=== PATIENT | male | born 1950 | race Caucasian/White ===

== ENCOUNTER 2016-05-10 23:31 | Inpatient (IN) ==
[2016-05-11] MEDS ORDERED: 0.9 % Sodium Chloride 1,000 ML IVC ONE ×2 (00:36→10:07)
--- NOTE | 2016-05-11 00:40 | Emergency Department Note ---
Disposition Clinical Impression: Altered mental status, Hypoxia, Acute renal failure, Weakness Disposition: Admitted As Inpatient Condition: Fair [facility] Care Provider[facility] - Forms: ED Satisfaction Letter Time of Disposition: 04:54 General Adult HPI - General Chief complaint: ED Weakness Stated complaint: weakness Time Seen by Provider: 05/11/16 00:36 Source: patient Mode of arrival: private vehicle Limitations: no limitations Nursing Notes Reviewed: Yes Vital Signs Reviewed: Yes - History of Present Illness HPI Narrative: 65-year-old male presents to the emergency department with complaint of generalized weakness, change in mental status and overall fatigue. Family at the bedside state that they have noticed a decrease in his mentation over the last 2 days. They deny any known head injury or trauma. Patient has not had any similar episodes in the past. Patient currently is being evaluated by the [facility] for possible cancer. Patient has a history of throat cancer and what she was diagnosed in 2007 and received radiation and chemotherapy treatment. He has since been in remission, however states that he has been told that he has multiple pulmonary nodules and they are currently evaluating him for possible lung cancer but with no official diagnosis. He denies any recent fever, chills, nausea or vomiting. He does state that he has had a mild intermittent cough for the last several weeks which is nonproductive. Patient denies any additional complaints or concerns. He has no known drug allergies. He has not recently started any new medications. He denies any chest pain or shortness of breath. He has not had any urinary symptoms. Onset (ago): day(s) Location: chest Radiation: non-radiation Pain Severity: moderate Pain Scale: 6 Consistency: intermittent Improves with: nothing Worsens with: nothing Associated symptoms: Reports: denies other symptoms Treatments Prior to Arrival: none - Related Data Home Medications Medication Instructions Recorded Confirmed Omeprazole [PriLOSEC] 20 mg PO DAILY 02/22/15 02/22/15 Albuterol Sulfate [Proventil Hfa] 2 puff IH Q4H PRN 05/11/16 05/11/16 Aspirin 81 mg PO DAILY 05/11/16 05/11/16 Atorvastatin Calcium [Lipitor] 80 mg PO DAILY 05/11/16 05/11/16 Cyclobenzaprine [Flexeril] 10 mg PO TID PRN 05/11/16 05/11/16 Diazepam [Valium] 10 mg PO DAILY PRN 05/11/16 05/11/16 Gabapentin [Neurontin] 300 mg PO TID 05/11/16 05/11/16 Guaifenesin [Siltussin SA] 100 mg PO BID 05/11/16 05/11/16 HYDROcodone/Acet 7.5/325 mg [[place] 1 tab PO 5XD PRN 05/11/16 05/11/16 7.5-325 mg] Moxifloxacin HCl [Avelox] 400 mg PO DAILY 05/11/16 05/11/16 Nabumetone [Relafen] 500 mg PO BID 05/11/16 05/11/16 Sennosides [Senna] 8.6 mg PO BID 05/11/16 05/11/16 Sertraline [Zoloft] 100 mg PO DAILY 05/11/16 05/11/16 Tamsulosin [Flomax] 0.4 mg PO DAILY 05/11/16 05/11/16 Tiotropium Br/Olodaterol HCl 2 puff IH DAILY 05/11/16 05/11/16 [Stiolto Respimat Inhal [place]] Tiotropium [place] [Spiriva 2 puff IH DAILY 05/11/16 05/11/16 Respimat] Tizanidine HCl 4 mg PO TID PRN 05/11/16 05/11/16 Allergies Allergy/AdvReac Type Severity Reaction Status Date / Time No Known Allergies Allergy Verified 05/10/16 23:36 All systems ED: reviewed and negative except as stated. Constitutional: Denies: fever, chills Cardiovascular: Denies: chest pain Respiratory: Reports: cough. Denies: dyspnea Gastrointestinal: Denies: abdominal pain, nausea, vomiting Musculoskeletal: Denies: back pain, neck pain Integumentary: Denies: rash, abrasion, lesions Neurological: Denies: headache Psychiatric: Denies: anxiety, depression, suicidal thoughts, homicidal thoughts Endocrine: Reports: fatigue Past Medical History - Past Medical History Attestation: Yes The following information was validated with the patient. Source: patient, nursing notes reviewed Medical history: Reports: COPD, GERD, other Surgical history: Reports: other (Back surgery, egd) Psychiatric history: Reports: no psych history - Social History Smoking Status: Former smoker Smokeless Tobacco Status: No Alcohol use: Reports: none Drug use: Reports: none Physical Exam - General Limitations: no limitations General appearance: alert, other (Alert and oriented 3, however slow to answer specific questions.) - Head Head exam: atraumatic, normocephalic, normal inspection - Eye Eye exam: Present: normal appearance, PERRL - Neck Neck exam: Present: normal inspection, full ROM, trachea midline - Chest Chest inspection: Present: normal inspection, symmetric chest wall rise - Respiratory Respiratory exam: Present: normal lung sounds bilaterally. Absent: respiratory distress - Cardiovascular Cardiovascular exam: Present: regular rate, normal rhythm, normal heart sounds - Abdominal Exam Abdominal exam: Present: soft, Non-Tender, normal bowel sounds - Extremities Exam Extremities exam: Present: normal inspection, full ROM. Absent: tenderness, pedal edema - Expanded Lower Extremity Exam Gait: observed and normal - Back Exam Back exam: Present: normal inspection, full ROM. Absent: tenderness - Neurological Exam Neurological exam: Present: alert, oriented X3 - Psychiatric Psychiatric exam: Present: normal affect, normal mood - Skin Skin exam: Present: warm, dry, intact, normal color Course Course Narrative: We would have liked to have done a CTA of the chest on this patient to further evaluate his hypoxia as well as get better imaging studies regarding his aforementioned pulmonary nodules and to rule out a pulmonary embolus, however we were unable to do this secondary to the patient's renal function. Patient will be admitted to the hospitalists for further evaluation of his acute renal failure, hypoxia, altered mental status and generalized weakness. I discussed this with both the patient and his family at the bedside and they verbalized understanding and agreement with plan of care. - Consultations Consultation #1: I discussed admission with the hospitalists, he accepts. Patient's family informed. Currently awaiting bed assignment. Time: 07:30 Vital Signs Temperature 97.4 F L 05/10/16 23:36 Pulse Rate 82 05/10/16 23:36 Respiratory Rate 19 05/10/16 23:36 Blood Pressure 117/69 05/10/16 23:36 O2 Sat by Pulse Oximetry 86 L 05/10/16 23:36 Temperature 97.4 F L 05/10/16 23:36 Pulse Rate 70 05/11/16 07:22 Respiratory Rate 18 05/11/16 07:22 Blood Pressure 103/87 05/11/16 07:22 O2 Sat by Pulse Oximetry 94 L 05/11/16 07:22 Oxygen Delivery Oxygen Delivery Nasal Cannula Medical Decision Making - Lab Data Lab results reviewed: Yes I reviewed the patient's lab results. Result diagrams: 05/11/16 00:55 05/11/16 00:55 Lab Results 05/11/16 05/11/16 05/11/16 Range/Units 00:55 00:55 00:55 WBC 8.5 (4.3-11.1) K/mcL RBC 4.92 (4.19-5.50) M/mcL Hgb 13.5 (12.9-16.9) g/dL Hct 41.0 (37.5-50.1) % MCV 83.3 (83.0-100.0) fL MCH 27.4 L (28.0-33.3) pg MCHC 32.9 (31.6-35.5) g/dL RDW 13.1 (11.5-14.5) % Plt Count 222 (140-400) K/mcL MPV 11.5 (9.4-12.4) fL Immature Gran % 1.5 (0-4) % Seg Neutrophils % 77.4 % Lymphocytes % 10.7 % Monocytes % 8.3 % Eosinophils % 1.4 % Basophils % 0.7 % Neutrophils # 6.6 (1.6-8.9) K/mcL Lymphocytes # 0.9 (0.6-4.6) K/mcL Monocytes # 0.7 (0.0-1.3) K/mcL Eosinophils # 0.1 (0.0-0.6) K/mcL Basophils # 0.1 (0.0-0.2) K/mcL PT 11.5 (9.4-12.1) Seconds INR 1.1 APTT (26.0-36.0) Seconds Sodium 139 (136-145) mEq/L Potassium 3.0 L (3.5-4.5) mEq/L Chloride 97 L (98-109) mEq/L Carbon Dioxide 28 (19-29) mEq/L BUN 39 H (8-26) mg/dL Creatinine 3.42 H (0.72-1.25) mg/dL Est GFR ( Amer) 22 L (> 60) Est GFR (Non-Af Amer) 18 L (> 60) BUN/Creatinine Ratio 11 (6-26) Glucose 176 H (70-99) mg/dL Calculated Osmolality 302 H (280-300) Calcium 17.5 H* (8.6-10.8) mg/dL Magnesium 2.3 (1.6-2.6) mg/dL Total Bilirubin 0.9 (0.2-1.2) mg/dL AST 100 H (5-34) Units/L ALT 70 H (0-55) Units/L Alkaline Phosphatase 362 H (38-126) Units/L Ammonia (18-72) mcmol/L Troponin I (0-0.03) ng/mL B-Natriuretic Peptide (0-100) pg/mL Serum Total Protein 7.8 (6.0-8.3) g/dL Albumin 3.5 (3.5-5.0) g/dL Globulin 4.3 H (2.4-3.5) g/dL Albumin/Globulin Ratio 0.8 L (1.1-2.2) TSH 0.918 (0.350-4.840) mcIU/mL Urine Color (Yellow) Urine Clarity (Clear) Urine pH (5.0-8.0) pH Units Ur Specific [place] (1.010-1.025) Urine Protein (Neg-Trace) mg/dL Urine Glucose (UA) (Normal) mg/dL Urine Ketones (Negative) mg/dL Urine Blood (Negative) Urine Nitrite (Negative) Urine Bilirubin (Negative) Urine Urobilinogen (Normal) mg/dL Ur Leukocyte Esterase (Negative) Ur Culture Indicated? (NO) 05/11/16 05/11/16 05/11/16 Range/Units 00:55 00:55 00:55 WBC (4.3-11.1) K/mcL RBC (4.19-5.50) M/mcL Hgb (12.9-16.9) g/dL Hct (37.5-50.1) % MCV (83.0-100.0) fL MCH (28.0-33.3) pg MCHC (31.6-35.5) g/dL RDW (11.5-14.5) % Plt Count (140-400) K/mcL MPV (9.4-12.4) fL Immature Gran % (0-4) % Seg Neutrophils % % Lymphocytes % % Monocytes % % Eosinophils % % Basophils % % Neutrophils # (1.6-8.9) K/mcL Lymphocytes # (0.6-4.6) K/mcL Monocytes # (0.0-1.3) K/mcL Eosinophils # (0.0-0.6) K/mcL Basophils # (0.0-0.2) K/mcL PT (9.4-12.1) Seconds INR APTT 22.4 L (26.0-36.0) Seconds Sodium (136-145) mEq/L Potassium (3.5-4.5) mEq/L Chloride (98-109) mEq/L Carbon Dioxide (19-29) mEq/L BUN (8-26) mg/dL Creatinine (0.72-1.25) mg/dL Est GFR ( Amer) (> 60) Est GFR (Non-Af Amer) (> 60) BUN/Creatinine Ratio (6-26) Glucose (70-99) mg/dL Calculated Osmolality (280-300) Calcium (8.6-10.8) mg/dL Magnesium (1.6-2.6) mg/dL Total Bilirubin (0.2-1.2) mg/dL AST (5-34) Units/L ALT (0-55) Units/L Alkaline Phosphatase (38-126) Units/L Ammonia (18-72) mcmol/L Troponin I 0.02 (0-0.03) ng/mL B-Natriuretic Peptide 21 (0-100) pg/mL Serum Total Protein (6.0-8.3) g/dL Albumin (3.5-5.0) g/dL Globulin (2.4-3.5) g/dL Albumin/Globulin Ratio (1.1-2.2) TSH (0.350-4.840) mcIU/mL Urine Color (Yellow) Urine Clarity (Clear) Urine pH (5.0-8.0) pH Units Ur Specific [place] (1.010-1.025) Urine Protein (Neg-Trace) mg/dL Urine Glucose (UA) (Normal) mg/dL Urine Ketones (Negative) mg/dL Urine Blood (Negative) Urine Nitrite (Negative) Urine Bilirubin (Negative) Urine Urobilinogen (Normal) mg/dL Ur Leukocyte Esterase (Negative) Ur Culture Indicated? (NO) 05/11/16 05/11/16 Range/Units 02:05 04:02 WBC (4.3-11.1) K/mcL RBC (4.19-5.50) M/mcL Hgb (12.9-16.9) g/dL Hct (37.5-50.1) % MCV (83.0-100.0) fL MCH (28.0-33.3) pg MCHC (31.6-35.5) g/dL RDW (11.5-14.5) % Plt Count (140-400) K/mcL MPV (9.4-12.4) fL Immature Gran % (0-4) % Seg Neutrophils % % Lymphocytes % % Monocytes % % Eosinophils % % Basophils % % Neutrophils # (1.6-8.9) K/mcL Lymphocytes # (0.6-4.6) K/mcL Monocytes # (0.0-1.3) K/mcL Eosinophils # (0.0-0.6) K/mcL Basophils # (0.0-0.2) K/mcL PT (9.4-12.1) Seconds INR APTT (26.0-36.0) Seconds Sodium (136-145) mEq/L Potassium (3.5-4.5) mEq/L Chloride (98-109) mEq/L Carbon Dioxide (19-29) mEq/L BUN (8-26) mg/dL Creatinine (0.72-1.25) mg/dL Est GFR ( Amer) (> 60) Est GFR (Non-Af Amer) (> 60) BUN/Creatinine Ratio (6-26) Glucose (70-99) mg/dL Calculated Osmolality (280-300) Calcium (8.6-10.8) mg/dL Magnesium (1.6-2.6) mg/dL Total Bilirubin (0.2-1.2) mg/dL AST (5-34) Units/L ALT (0-55) Units/L Alkaline Phosphatase (38-126) Units/L Ammonia 25 (18-72) mcmol/L Troponin I (0-0.03) ng/mL B-Natriuretic Peptide (0-100) pg/mL Serum Total Protein (6.0-8.3) g/dL Albumin (3.5-5.0) g/dL Globulin (2.4-3.5) g/dL Albumin/Globulin Ratio (1.1-2.2) TSH (0.350-4.840) mcIU/mL Urine Color Yellow (Yellow) Urine Clarity Clear (Clear) Urine pH 6.0 (5.0-8.0) pH Units Ur Specific [place] 1.012 (1.010-1.025) Urine Protein Negative (Neg-Trace) mg/dL Urine Glucose (UA) Normal (Normal) mg/dL Urine Ketones Negative (Negative) mg/dL Urine Blood Negative (Negative) Urine Nitrite Negative (Negative) Urine Bilirubin Negative (Negative) Urine Urobilinogen Normal (Normal) mg/dL Ur Leukocyte Esterase Negative (Negative) Ur Culture Indicated? NO (NO) - Radiology Data Radiology results reviewed: Yes I reviewed the patient's radiology results. - EKG Data EKG #1 EKG attestation: Yes I reviewed and interpreted this EKG. EKG shows normal: sinus rhythm Rate: normal Rhythm: NSR [place]/QRS: normal Interpretation: no acute changes
[2016-05-11 01:06] LABS: Basophils # 0.1 K/mcL (0.0-0.2); Basophils % 0.7 %; Eosinophils # 0.1 K/mcL (0.0-0.6); Eosinophils % 1.4 %; Hemoglobin 13.5 g/dL (12.9-16.9); Immature Granulocytes % 1.5 % (0-4); Lymphocytes # 0.9 K/mcL (0.6-4.6); Lymphocytes % 10.7 %; Mean Corpuscular HGB Conc 32.9 g/dL (31.6-35.5); Mean Corpuscular Hemoglobin 27.4 pg (28.0-33.3); Mean Corpuscular Volume 83.3 fL (83.0-100.0); Mean Platelet Volume 11.5 fL (9.4-12.4); Monocytes # 0.7 K/mcL (0.0-1.3); Monocytes % 8.3 %; Neutrophils # 6.6 K/mcL (1.6-8.9); Platelet Count 222 K/mcL (140-400); Red Blood Count 4.92 M/mcL (4.19-5.50); Red Cell Distribution Width 13.1 % (11.5-14.5); Segmented Neutrophils % 77.4 %
[2016-05-11 01:12] LABS: INR 1.1; Prothrombin Time 11.5 Seconds (9.4-12.1)
[2016-05-11 01:21] LABS: Albumin 3.5 g/dL (3.5-5.0); Albumin/Globulin Ratio 0.8 (1.1-2.2); Bilirubin,Total 0.9 mg/dL (0.2-1.2); Globulin 4.3 g/dL (2.4-3.5); Magnesium 2.3 mg/dL (1.6-2.6); Total Protein 7.8 g/dL (6.0-8.3)
[2016-05-11 01:23] LABS: Calcium 17.5 mg/dL (8.6-10.8)
[2016-05-11 01:43] LABS: Thyroid Stimulating Hormone 0.918 mcIU/mL (0.350-4.840)
[2016-05-11 02:25] LABS: Bilirubin,Urine Negative (Negative); Blood,Urine Negative (Negative); Clarity,Urine Clear (Clear); Color,Urine Yellow (Yellow); Glucose,Urine (UA) Normal (Normal); Ketones,Urine Negative (Negative); Leukocyte Esterase,Urine Negative (Negative); Nitrite,Urine Negative (Negative); Protein,Urine Negative (Neg-Trace); Specific Gravity,Urine 1.012 (1.010-1.025); Urobilinogen,Urine Normal (Normal)
[2016-05-11] MEDS ORDERED: *HR* HYDROmorphone (PF) 1 MG/ML SYRINGE IV ONE (04:49)
[2016-05-11] MEDS: 0.9 % Sodium Chloride 1,000 ML IVC SCH ×4 (04:57→21:18)
[2016-05-11] MEDS ORDERED: Naloxone 0.4 MG/ML INJ IVP PRN (09:49)
[2016-05-11] MEDS ORDERED: Acetaminophen 325 MG TABLET PO PRN (09:53)
[2016-05-11] MEDS ORDERED: Calcitonin-Salmon, Synthetic 400 UNIT/2 ML VIAL SQ SCH (10:30)
[2016-05-11] MEDS ORDERED: Albuterol 2.5 MG/3 ML NEBULIZER IH PRN (10:44)
--- NOTE | 2016-05-11 10:47 | Internal Med History&Physical ---
<Nati Mitchell - Last Filed: 05/11/16 21:10> Date of Encounter: 05/11/16 Time of Encounter: 08:30 Assessment and Plan (1) Hypercalcemia Current visit: Yes Status: Acute 1 patient presents with calcium level 17.5 he does have a history of malignancy and is presently being worked up for possible nodules in his lungs. He has had several family members with a history of lung cancer. We will continue with IV fluids and given a liter bolus. Then continue at 200 mL's an hour. 2 we will frequently check calcium 3 we will give calcitonin 4. Did consult oncology for concerns of malignancy (2) ANN-MARIE (acute kidney injury) Current visit: Yes Status: Acute 1 patient does have creatinine of 3.458. His baseline is around 1. Suspect this is related to his hypercalcemia. We will continue with IV fluids and monitor creatinine 2 we will avoid nephrotoxins 3 consult nephrology as needed (3) DVT prophylaxis Current visit: Yes Status: Acute 1 heparin subcutaneous (4) Hypoxia Current visit: Yes Status: Acute 1 patient presented with hypoxia, chest x-ray does not reveal any pneumonia some bright basilar atelectasis was notable mild pulmonary edema. We will continue with oxygen and titrate to maintain SPO2 greater than 92%. Some concern may be related to malignancy however he does have a history of tobacco abuse and COPD. 2 continue with bronchodilators 3 monitor for fluid overload (5) Weakness Current visit: Yes Status: Acute 1 she has been expressing weakness and fatigue which likely is related to his hypercalcemia will continue to monitor calcium levels 2 place patient on fall precautions Internal Medicine - H&P: HPI Chief complaint: Weakness Admitted From: Emergency Dept Plans for Post Hospital Care: Home History of present illness: Mr. Trevino is a 65 year old male past medical history of throat and prostate cancer presently 5 years ago COPD . Patient presented to the ER with complaints of generally weakness and change in mental status and fatigue over the past 2 days. Patient denies any recent history of head injury trauma or fall . [facility] did have some suspicious nodules on CAT scan dated 03/16/2015. He was seen by pulmonology at this facility which found these benign etiology. He does have a history of third cancer diagnosed in 2007 and received radiation and chemotherapy treatment. He has since been in remission he denies any recent chills fevers nausea vomiting or sick contacts. He does have intermittent mild cough which is nonproductive. He also has complaint of some anorexia states he just does not have an appetite to eat. Patient did present to the ER with above complaints. According to ER records patient's oxygen saturation was 86% he was placed on nasal cannula which did increase oxygen saturation 94% he is afebrile. Lab work did reveal no leukocytosis however he did have some hypokalemia as well as elevated creatinine and hypercalcemia calcium level 17.5. chest x-ray did reveal some bibasilar atelectasis and possible mild pulmonary edema. sinus rhythm no ST-T wave abnormalities. Patient was given IV fluid. He was admitted for further workup and evaluation. Presently patient appears fatigued. Denies any chest pain or shortness of breath. He does state he feels very weak lung sounds are clear bilaterally pounds S1 and S2 with no gallop murmur rub or click noted. SPO2 is 93% on 2 L nasal cannula. I reviewed his case with who agrees with plan Past Med Surg Social Fam HX - Past Medical History Medical history: COPD, GERD, other Psychiatric history: no psych history - Past Surgical History Surgical History: other (Back surgery, egd) - Social History Smoking Status: Former smoker Smokeless Tobacco Status: No Alcohol use: none Drug use: none - Family History Mother Age at : 73 Hx Family Neuromuscular Disorders: Yes Father Hx Family Cardiac Disorders: Yes Hx Family Respiratory Disorders: Yes Internal Medicine - H&P: Meds Omeprazole [PriLOSEC] 20 mg PO DAILY 02/22/15 [History] Albuterol Sulfate [Proventil Hfa] 2 puff IH Q4H PRN 05/11/16 [History] Aspirin 81 mg PO DAILY 05/11/16 [History] Atorvastatin Calcium [Lipitor] 80 mg PO DAILY 05/11/16 [History] Cyclobenzaprine [Flexeril] 10 mg PO TID PRN 05/11/16 [History] Diazepam [Valium] 10 mg PO DAILY PRN 05/11/16 [History] Gabapentin [Neurontin] 300 mg PO TID 05/11/16 [History] Guaifenesin [Siltussin SA] 100 mg PO BID 05/11/16 [History] HYDROcodone/Acet 7.5/325 mg [[place] 7.5-325 mg] 1 tab PO 5XD PRN 05/11/16 [ History] Moxifloxacin HCl [Avelox] 400 mg PO DAILY 05/11/16 [History] Nabumetone [Relafen] 500 mg PO BID 05/11/16 [History] Sennosides [Senna] 8.6 mg PO BID 05/11/16 [History] Sertraline [Zoloft] 100 mg PO DAILY 05/11/16 [History] Tamsulosin [Flomax] 0.4 mg PO DAILY 05/11/16 [History] Tiotropium Br/Olodaterol HCl [Stiolto Respimat Inhal [place]] 2 puff IH DAILY [History] Tiotropium [place] [Spiriva Respimat] 2 puff IH DAILY 05/11/16 [History] Tizanidine HCl 4 mg PO TID PRN 05/11/16 [History] Allergies No Known Allergies Allergy (Verified 05/10/16 23:36) All Systems PM: A 10-system review of systems was performed and is negative for pertinent findings except as documented above in the HPI. - Constitutional Constitutional: anorexia, fatigue, fever(s), weakness - Cardiovascular Cardiovascular ROS IM: no chest pain, no diaphoresis, no dyspnea, no lightheadedness, no palpitations, no syncope - Respiratory Respiratory: cough, no dyspnea, no wheezing, no excessive phlegm production - Gastrointestinal Gastrointestinal: no abdominal pain, no diarrhea, no hematemesis, no hematochezia, no melena, no nausea, no vomiting - Musculoskeletal Musculoskeletal ROS IM: no numbness, no tingling - Integumentary Integumentary IM: no rash, no unusual bruising - Neurological Neurological ROS: no confusion, no convulsions, no focal weakness, no numbness, no tingling, no tremor(s) - Constitutional Vitals: Temp Pulse Resp BP Pulse Ox 97.3 F L 98 15 119/76 95 05/11/16 10:07 05/11/16 10:07 05/11/16 10:07 05/11/16 10:07 05/11/16 10:07 General appearance: Present: A&O X 3 - Head Head exam: Present: atraumatic, normocephalic - Eye Eye exam: Present: PERRL, conjuntiva pink, sclera anicteric Pupils: Present: PERRL - Neck Neck exam general surgery: Present: supple, trachea midline. Absent: lymphadenopathy - Respiratory Respiratory exam: Present: CTAB. Absent: accessory muscle use, rales, rhonchi, wheezes - Cardiovascular Cardiovascular exam: Present: RRR, +S1, +S2. Absent: diastolic murmur, gallop, rubs, systolic murmur - GI/Abdominal GI/Abdominal exam: Present: normal bowel sounds, soft, no peritoneal signs. Absent: distended, tenderness - Extremities Exam Extremities exam: Present: warm, radial pulses palpable and symetrical. Absent : calf tenderness, cyanotic, pedal edema - Neurological Exam Neurological exam: Present: CN II-XII intact, oriented X3, no focal deficits. Absent: pronater drift, facial droop, speech deficit - Skin Skin exam: Present: dry, intact Internal Med - H&P Results - Labs CBC & Chem 7: 05/11/16 00:55 05/11/16 17:30 - EKG Data EKG shows normal: sinus rhythm - Diagnostic Studies Other Images Additional comments: Chest X-Ray 05/11/16 00:36 IMPRESSION: 1. Bibasilar atelectasis or, less likely, pneumonia. 2. Mild pulmonary edema versus artifact. D/ / Omari Baca MD / Omari Baca MD Interpreting Provider: Omari Baca MD Head CT 05/11/16 00:39 IMPRESSION: No acute intracranial abnormality. D/ / Omari Baca MD / Omari Baca MD Interpreting Provider: Omari Baca MD <Lc Shah - Last Filed: 05/13/16 08:00> Assessment and Plan (1) Hypercalcemia of malignancy Current visit: Yes Status: Acute (2) Altered mental status Current visit: Yes Status: Acute Qualifiers: Altered mental status type: delirium Qualified Code(s): R41.0 - Disorientation, unspecified (3) ANN-MARIE (acute kidney injury) Current visit: Yes Status: Acute (4) DVT prophylaxis Current visit: Yes Status: Acute Internal Medicine - H&P: HPI History of present illness: Mr. Trevino is a 65 year old male All Systems PM: A 10-system review of systems was performed and is negative for pertinent findings except as documented above in the HPI. - Constitutional Vitals: Temp Pulse Resp BP Pulse Ox 98.0 F 99 16 128/75 88 L 05/13/16 06:23 05/13/16 06:23 05/13/16 06:23 05/13/16 06:23 05/13/16 06:23 Internal Med - H&P Results - Labs CBC & Chem 7: 05/12/16 06:17 05/12/16 06:17 - Impressions ITS Impressions Chest CT 05/12/16 09:52 IMPRESSION: 1. New since the prior examination is extensive subcentimeter lytic lesions throughout the thoracic axial and appendicular skeleton consistent with multiple myeloma. There is no pathologic fracture. 2. Motion artifact limits evaluation of the lungs with no acute pneumonia or effusion. 3. Progressive linear orientation of numerous nodules in the right upper lobe with an individual component measuring 9 mm compared to 6 mm on the prior exam. There are stable numerous bilateral solid pulmonary nodules. D/ / 05/12/2016 13:51:06 Petr Mcclelland MD / tabitha Interpreting Provider: Petr Mcclelland MD Hip/Pelvis X-Ray 05/12/16 10:10 IMPRESSION: No acute or suspicious abnormalities. Mild degenerative changes to both hips and both SI joints and to the visualized lower lumbar spine. D/ / 05/12/2016 14:02:08 Quinn Ramachandran MD / kiersten Interpreting Provider: Quinn Ramachandran MD - Attending Attestation I examined this patient and my medical decision-making was reviewed with the CATERPILLAR MECHANIC/PA/Advanced Practice Nurse/Resident Physician. I agree with the documented findings, disposition and treatment plan as described except to the extent set forth below. Patient presented with altered mental status. Was found to have hypercalcemia, likely secondary to malignancy. On exam he is confused but in no distress. Heart is regular rate and rhythm S1-S2. Plan: IV fluids, calcitonin, oncology consult, follow up labs closely. Avoid nephrotoxins due to acute kidney injury. Workup for malignancy in progress.
[2016-05-11] MEDS: Ipratropium/Albuterol Neb 3 ML IH SCH ×3 (11:41→22:19)
[2016-05-11] MEDS: *HR* HYDROcodone/Acet 5/325 mg TABLET PO PRN (13:38)
[2016-05-11] MEDS: Gabapentin 100 MG CAPSULE PO SCH (21:07)
[2016-05-11] MEDS: Sennosides 8.6 MG TABLET PO SCH (21:07)
[2016-05-11] MEDS: *HR* Heparin 5,000 UNIT/ML VIAL SQ SCH (21:17)
[2016-05-11 21:39] LABS: Potassium 3.4 mEq/L (3.5-4.5)
[2016-05-11 21:44] LABS: Calcium 14.1 mg/dL (8.6-10.8)
[2016-05-12] MEDS: 0.9 % Sodium Chloride 1,000 ML IVC SCH ×3 (04:48→19:29)
[2016-05-12] MEDS: *HR* Heparin 5,000 UNIT/ML VIAL SQ SCH ×2 (04:53→17:33)
[2016-05-12] MEDS: Calcitonin-Salmon, Synthetic 400 UNIT/2 ML VIAL SQ SCH ×2 (05:02→17:35)
[2016-05-12] MEDS: Ipratropium/Albuterol Neb 3 ML IH SCH ×4 (05:23→22:02)
[2016-05-12 06:29] LABS: Basophils # 0.1 K/mcL (0.0-0.2); Basophils % 0.8 %; Eosinophils # 0.1 K/mcL (0.0-0.6); Eosinophils % 1.2 %; Hematocrit 36.3 % (37.5-50.1); Immature Granulocytes % 4.7 % (0-4); Lymphocytes # 0.9 K/mcL (0.6-4.6); Lymphocytes % 11.6 %; Mean Corpuscular HGB Conc 33.1 g/dL (31.6-35.5); Mean Corpuscular Hemoglobin 27.6 pg (28.0-33.3); Mean Corpuscular Volume 83.6 fL (83.0-100.0); Mean Platelet Volume 11.2 fL (9.4-12.4); Monocytes # 0.8 K/mcL (0.0-1.3); Monocytes % 10.5 %; Neutrophils # 5.4 K/mcL (1.6-8.9); Platelet Count 209 K/mcL (140-400); Red Blood Count 4.34 M/mcL (4.19-5.50); Red Cell Distribution Width 13.2 % (11.5-14.5); Segmented Neutrophils % 71.2 %
[2016-05-12 06:40] LABS: Potassium 3.5 mEq/L (3.5-4.5)
[2016-05-12 06:46] LABS: Calcium 13.8 mg/dL (8.6-10.8)
[2016-05-12] MEDS: Aspirin 81 MG TAB.CHEW PO SCH (08:05)
[2016-05-12] MEDS: Sennosides 8.6 MG TABLET PO SCH ×2 (08:05→20:33)
[2016-05-12] MEDS ORDERED: Tiotropium 18 MCG inhalation IH SCH (09:00)
--- NOTE | 2016-05-12 09:56 | Oncology Inp Consult Note ---
Date of Encounter: 05/12/16 Time of Encounter: 12:00 Assessment and Plan (1) Hypercalcemia Status: Acute Assessment and plan: -Patient with severe hypercalcemia and AMS-hx of head and neck cancer, s/p radiation and prostate ca s/p RT (PSA nl), with hx lung nodules was [facility] of [facility]? hypercalcemia secondary to malignancy-?new primary vs metastatic malignancy. PTH level not available. He will need bone scan. Ct chest wo contrast ordered due to renal insufficiency. -Joint pains recently worsened ?metastatic malignancy-needs work up. Obtain reports from outside hospitals[facility] -On norco. Antiemetics and stool softners. Not received bisphosphonates per pharmacy. Serum Cr improving. Pamidronate written with steroids. On calcitonin BID dosing. Plan of care discussed with patient and family in detail - Data of Consult Requesting Physician: Lc Shah MD Primary Care Provider: PCP [place] - Consult Narrative Reason for consult: hypercalcemia History of present illness: Mr. Trevino is a 65 year old male with medical history significant for head and neck cancer status posttreatment with radiation 5 years or so ago at [facility] , history of prostate cancer treated 2 years ago status post external beam radiation therapy the PSA under control the patient's family report, COPD, gastroesophageal reflux disease, history of lung nodules since January 2015 hospitalized with hypercalcemia, altered mental status. Admission calcium was at 17 which improved to around 14-13 today. Patient is awake and oriented 2 to communicate well. The patient has had hip and joint discomfort for the last month or so. He has a cough with expectoration without any hemoptysis. He has COPD denies any worsening of shortness of breath. He had some difficulty swallowing had undergone ENT exam and dilatation, he is also status [facility] He had an episode of nausea and vomiting this a.m. He denies any lower extremity pain he denies neuropathy symptoms. He is able to walk to the bathroom without difficulty and had participated in physical therapy yesterday per family. A 14 point review of systems is otherwise negative. Past Med Surg Social Fam HX - Past Medical History Medical history: COPD, GERD, other Psychiatric history: no psych history - Past Surgical History Surgical History: other (Back surgery, egd) - Social History Smoking Status: Former smoker Smokeless Tobacco Status: No Alcohol use: none Drug use: none - Family History Mother Age at : 73 Hx Family Neuromuscular Disorders: Yes Father Hx Family Cardiac Disorders: Yes Hx Family Respiratory Disorders: Yes Medications and Allergies Omeprazole [PriLOSEC] 20 mg PO DAILY 02/22/15 [History] Albuterol Sulfate [Proventil Hfa] 2 puff IH Q4H PRN 05/11/16 [History] Aspirin 81 mg PO DAILY 05/11/16 [History] Atorvastatin Calcium [Lipitor] 80 mg PO DAILY 05/11/16 [History] Cyclobenzaprine [Flexeril] 10 mg PO TID PRN 05/11/16 [History] Diazepam [Valium] 10 mg PO DAILY PRN 05/11/16 [History] Gabapentin [Neurontin] 300 mg PO TID 05/11/16 [History] Guaifenesin [Siltussin SA] 100 mg PO BID 05/11/16 [History] HYDROcodone/Acet 7.5/325 mg [[place] 7.5-325 mg] 1 tab PO 5XD PRN 05/11/16 [ History] Moxifloxacin HCl [Avelox] 400 mg PO DAILY 05/11/16 [History] Nabumetone [Relafen] 500 mg PO BID 05/11/16 [History] Sennosides [Senna] 8.6 mg PO BID 05/11/16 [History] Sertraline [Zoloft] 100 mg PO DAILY 05/11/16 [History] Tamsulosin [Flomax] 0.4 mg PO DAILY 05/11/16 [History] Tiotropium Br/Olodaterol HCl [Stiolto Respimat Inhal [place]] 2 puff IH DAILY [History] Tiotropium [place] [Spiriva Respimat] 2 puff IH DAILY 05/11/16 [History] Tizanidine HCl 4 mg PO TID PRN 05/11/16 [History] Allergies No Known Allergies Allergy (Verified 05/10/16 23:36) Review of systems: as in HPI Oncology - Exam - Constitutional Vitals: Temp Pulse Resp BP Pulse Ox 98.4 F 93 16 132/85 92 L 05/12/16 07:16 05/12/16 07:16 05/12/16 07:16 05/12/16 07:16 05/12/16 07:16 Exam: T well-built and acute HEENT atraumatic normocephalic anicteric sclera. Neck no palpable lymphadenopathy. Chest bilateral air entry. Cardiovascular S1-S2 present Abdomen is soft nontender no hepatosplenomegaly no masses palpable Muscskeletal no bony tenderness in the back or deformities Extremities no lower extremity edema Neurologic alert awake oriented no sensory/motor deficits, Walks with help Oncology - Results - Labs Labs: Short CBC 05/12/16 Range/Units 06:17 WBC 7.6 (4.3-11.1) K/mcL Hgb 12.0 L D (12.9-16.9) g/dL Hct 36.3 L (37.5-50.1) % Plt Count 209 (140-400) K/mcL Neutrophils # 5.4 (1.6-8.9) K/mcL BMP 05/11/16 05/11/16 05/11/16 11:50 17:30 17:30 Sodium Potassium 3.1 L Chloride Carbon Dioxide BUN Creatinine Glucose Calcium 14.7 H* D 14.6 H* 05/11/16 05/12/16 21:21 06:17 Sodium 146 H D 146 H Potassium 3.4 L 3.5 Chloride 111 H 113 H Carbon Dioxide 27 25 BUN 28 H D 25 Creatinine 3.01 H 2.80 H Glucose 118 H 108 H Calcium 14.1 H* 13.8 H* Consult Discharge Plan - Plan [facility]errals: [facility] [Primary Care Provider] -
[2016-05-12] MEDS ORDERED: Dexamethasone 4 MG/ML VIAL IVP ONE (10:09)
[2016-05-12] MEDS ORDERED: Pamidronate 30 MG in 0.9 % Sodium Chloride 500 ML IVPB ONE (10:09)
--- NOTE | 2016-05-12 14:09 | Internal Med Progress Note ---
Date of Encounter: 05/12/16 Time of Encounter: 14:09 - Assessment and plan (1) Hypercalcemia of malignancy Current Visit: Yes Status: Acute Assessment and plan: IV fluids and Lasix. Patient was given calcitonin. We will give pamidronate. I discussed the case with oncology. Appreciate their input. CT of the chest shows multiple lytic lesions concerning for multiple myeloma. We will follow up with oncology. (2) Altered mental status Current Visit: Yes Status: Acute Assessment and plan: Likely secondary to hypercalcemia, now improving with decreasing calcium level. We will monitor mental status closely. Qualifiers: Altered mental status type: delirium Qualified Code(s): R41.0 - Disorientation, unspecified (3) ANN-MARIE (acute kidney injury) Current Visit: Yes Status: Acute Assessment and plan: Secondary to hypercalcemia, dehydration, nephrocalcinosis or possibly related to multiple myeloma. We will continue with IV fluid hydration. Avoid nephrotoxins. Monitor BUN and creatinine. (4) DVT prophylaxis Current Visit: Yes Status: Acute Assessment and plan: Subcutaneous heparin. - Subjective Interval history: SOB improving from yesterday , mental status improved, no associated cough. No nausea vomiting diarrhea. She presented yesterday was altered mental status and elevated calcium level. - Constitutional Vitals: Temp Pulse Resp BP Pulse Ox 98.2 F 91 15 110/66 94 L 05/12/16 11:39 05/12/16 11:39 05/12/16 11:39 05/12/16 11:39 05/12/16 11:39 General appearance: Present: A&O X 3 - Eye Eye exam: Present: PERRL, conjuntiva pink, sclera anicteric Pupils: Present: PERRL - Respiratory Respiratory exam: Present: CTAB. Absent: accessory muscle use, rales, rhonchi, wheezes - Cardiovascular Cardiovascular exam: Present: RRR, +S1, +S2. Absent: diastolic murmur, gallop, rubs, systolic murmur - GI/Abdominal GI/Abdominal exam: Present: normal bowel sounds, soft, no peritoneal signs. Absent: distended, tenderness - Extremities Exam Extremities exam: Present: warm, radial pulses palpable and symetrical. Absent : calf tenderness, cyanotic, pedal edema - Neurological Exam Neurological exam: Present: CN II-XII intact, oriented X3, no focal deficits. Absent: pronater drift, facial droop, speech deficit Internal Medicine: Result - Labs CBC & Chem 7: 05/12/16 06:17 05/12/16 06:17 Labs: Short CBC 05/12/16 Range/Units 06:17 WBC 7.6 (4.3-11.1) K/mcL Hgb 12.0 L D (12.9-16.9) g/dL Hct 36.3 L (37.5-50.1) % Plt Count 209 (140-400) K/mcL Neutrophils # 5.4 (1.6-8.9) K/mcL BMP 05/11/16 05/11/16 05/11/16 17:30 17:30 21:21 Sodium 146 H D Potassium 3.1 L 3.4 L Chloride 111 H Carbon Dioxide 27 BUN 28 H D Creatinine 3.01 H Glucose 118 H Calcium 14.6 H* 14.1 H* 05/12/16 06:17 Sodium 146 H Potassium 3.5 Chloride 113 H Carbon Dioxide 25 BUN 25 Creatinine 2.80 H Glucose 108 H Calcium 13.8 H* - ABG Interpretation ABG results: PT/INR, D-dimer PT 11.5 Seconds (9.4-12.1) 05/11/16 00:55 - Impressions Impressions Chest CT 05/12/16 09:52 IMPRESSION: 1. New since the prior examination is extensive subcentimeter lytic lesions throughout the thoracic axial and appendicular skeleton consistent with multiple myeloma. There is no pathologic fracture. 2. Motion artifact limits evaluation of the lungs with no acute pneumonia or effusion. 3. Progressive linear orientation of numerous nodules in the right upper lobe with an individual component measuring 9 mm compared to 6 mm on the prior exam. There are stable numerous bilateral solid pulmonary nodules. D/ / 05/12/2016 13:51:06 Petr Mcclelland MD / tabith[facility] Interpreting Provider: Petr Mcclelland MD Hip/Pelvis X-Ray 05/12/16 10:10 IMPRESSION: No acute or suspicious abnormalities. Mild degenerative changes to both hips and both SI joints and to the visualized lower lumbar spine. D/ / 05/12/2016 14:02:08 Quinn Ramachandran MD / kiersten Interpreting Provider: Quinn Ramachandran MD Consult Discharge Plan - Plan [facility]errals: [facility] [Primary Care Provider] -
[2016-05-12] MEDS: *HR* HYDROcodone/Acet 5/325 mg TABLET PO PRN (20:32)
[2016-05-12] MEDS: Gabapentin 100 MG CAPSULE PO SCH (20:33)
[2016-05-12] MEDS: Ondansetron 4 MG/2 ML VIAL IVP PRN (20:33)
[2016-05-13] MEDS: Ipratropium/Albuterol Neb 3 ML IH SCH ×4 (04:11→22:47)
[2016-05-13] MEDS: *HR* Heparin 5,000 UNIT/ML VIAL SQ SCH ×2 (05:24→16:54)
[2016-05-13] MEDS: Calcitonin-Salmon, Synthetic 400 UNIT/2 ML VIAL SQ SCH ×2 (05:24→14:00)
--- NOTE | 2016-05-13 07:34 | Electrocardiograph Report ---
[place] [id number] Test Date: 2016-05-10 Pat Name: David Trevino Department: 104 Room: 2NE19 Gender: M X Ray Inspector: : 1950 Requested By: Rajendra Sims Order Number: [id number] Reading MD: Bill Christianson MD Measurements Intervals [place] Rate: 90 P: 37 ID: [id number] QRS: 2 QRSD: 98 T: -15 QT: 252 QTc: 300 Interpretive Statements SINUS RHYTHM WITH OCCASIONAL VENTRICULAR PREMATURE COMPLEXES Electronically Signed On 05-13-2016 7:33:36 EDT by Bill Christianson MD
[2016-05-13] MEDS: Aspirin 81 MG TAB.CHEW PO SCH (08:05)
[2016-05-13] MEDS: Sennosides 8.6 MG TABLET PO SCH ×2 (08:06→20:17)
--- NOTE | 2016-05-13 09:21 | Oncology Inp Progress Note ---
Date of Encounter: 05/13/16 Time of Encounter: 07:00 (1) Hypercalcemia Current Visit: Yes Status: Acute Assessment and plan: -Patient with severe hypercalcemia and AMS-hx of head and neck cancer, s/p radiation and prostate ca s/p RT (PSA nl), with hx lung nodules CT chest wo contrast and hip imaging findings reviewed d/w patient and family. PSA was nl. Lytic lesions in Ct chest, renal insufficiency -new onset ?sec hypercalcemia or primary process such as plasma cell dyscrasia. SPEP, light chanis pending. Obtain details of head and neck cancer stage/treatment from [place]. Will plan to obtain bone bx for diagnosis by IR> s/p pamidronate/dexamethasone yesterday for hypercalcemia. Pain under control Plan d/w family in detail Oncology: Subj Interval history: Patient is awake, bedside. Communicating better, no further nausea - Constitutional Vitals: Vital Signs Temp Pulse Resp BP Pulse Ox 05/13/16 06:23 98.0 F 99 16 128/75 88 L 05/13/16 04:12 16 92 L 05/13/16 03:45 98.1 F 101 16 135/71 92 L 05/13/16 00:11 97.9 F 94 16 117/74 91 L 05/12/16 22:03 16 91 L 05/12/16 20:00 95 05/12/16 19:46 98.3 F 106 16 134/74 95 05/12/16 16:00 98.0 F 102 15 125/82 98 05/12/16 15:35 18 98 05/12/16 11:39 98.2 F 91 15 110/66 94 L 05/12/16 10:27 18 95 Intake and Output 05/12/16 05/13/16 05/13/16 23:59 07:59 15:59 Intake Total 1250 / 1250 750 / 750 120 / 120 Output Total 225 / 225 Balance 1250 / 1250 525 / 525 120 / 120 Intake: IV Fluids 1000 / 1000 0.9 % Sodium Chloride 1, 1000 / 1000 000 ML @ 200 mls/hr IVC . Q5H LISA Rx#:[id number] Oral 250 / 250 750 / 750 120 / 120 Output: Urine 225 / 225 Other: Meal Dinner Breakfast Percent of Meal Consumed 50% 60% # Voids 1 Weight 89 kg 89 kg Blood Glucose* 188 Patient Weight 05/13/16 23:59 Weight 89 kg General appearance: no acute distress - Head Head exam: Present: atraumatic, normal inspection - Eye Eye exam: Present: sclera anicteric - Neck Neck exam: Present: full ROM Additional comments: no adenoapthy - Respiratory Respiratory exam: Present: CTAB - Cardiovascular Cardiovascular exam: Present: +S1, +S2 - Extremities Exam Extremities exam: Present: pedal edema Oncology: Obj Data - Labs CBC & Chem 7: 05/12/16 06:17 05/12/16 06:17 Labs: Laboratory Results - last 24 hr 05/12/16 17:03 POC Glucose 188 H - Impressions Impressions Chest CT 05/12/16 09:52 IMPRESSION: 1. New since the prior examination is extensive subcentimeter lytic lesions throughout the thoracic axial and appendicular skeleton consistent with multiple myeloma. There is no pathologic fracture. 2. Motion artifact limits evaluation of the lungs with no acute pneumonia or effusion. 3. Progressive linear orientation of numerous nodules in the right upper lobe with an individual component measuring 9 mm compared to 6 mm on the prior exam. There are stable numerous bilateral solid pulmonary nodules. D/ / 05/12/2016 13:51:06 Petr Mcclelland MD / [facility] [place] Interpreting Provider: Petr Mcclelland MD Hip/Pelvis X-Ray 05/12/16 10:10 IMPRESSION: No acute or suspicious abnormalities. Mild degenerative changes to both hips and both SI joints and to the visualized lower lumbar spine. D/ / 05/12/2016 14:02:08 Quinn Ramachandran MD / kiersten Interpreting Provider: Quinn Ramachandran MD - ABG Interpretation ABG results: PT/INR, D-dimer PT 11.5 Seconds (9.4-12.1) 05/11/16 00:55 Consult Discharge Plan - Plan [facility]errals: [facility] [Primary Care Provider] -
[2016-05-13 15:25] LABS: Basophils % 0.2 %; Hematocrit 41.3 % (37.5-50.1); Hemoglobin 13.2 g/dL (12.9-16.9); Immature Granulocytes % 1.6 % (0-4); Lymphocytes # 0.7 K/mcL (0.6-4.6); Lymphocytes % 4.3 %; Mean Corpuscular Hemoglobin 27.3 pg (28.0-33.3); Mean Corpuscular Volume 85.3 fL (83.0-100.0); Mean Platelet Volume 11.1 fL (9.4-12.4); Neutrophils # 14.2 K/mcL (1.6-8.9); Platelet Count 246 K/mcL (140-400); Red Blood Count 4.84 M/mcL (4.19-5.50); Red Cell Distribution Width 13.5 % (11.5-14.5); Segmented Neutrophils % 87.9 %
[2016-05-13 15:40] LABS: Albumin 3.4 g/dL (3.5-5.0); Albumin/Globulin Ratio 0.8 (1.1-2.2); Bilirubin,Total 0.8 mg/dL (0.2-1.2); Globulin 4.1 g/dL (2.4-3.5); Potassium 3.7 mEq/L (3.5-4.5); Total Protein 7.5 g/dL (6.0-8.3)
[2016-05-13 15:42] LABS: Calcium 13.9 mg/dL (8.6-10.8)
[2016-05-13] MEDS: 0.9 % Sodium Chloride 1,000 ML IVC SCH (16:54)
[2016-05-13] MEDS ORDERED: Levofloxacin 500 MG/100 ML 500 MG/100 ML BAG IVPB ONE (17:00)
[2016-05-13 17:53] LABS: ABG Base Excess 3.2 mEq/L (-2.0 to 3.0); ABG HCO3 27.9 mEQ/L (21-27); ABG Oxygen Saturation 95 % (95-98); ABG PCO2 42 mmHg (35-45); ABG PH 7.43 pH Units (7.32-7.45); ABG PO2 72 mmHg (85-104); ABG TCO2 29.2 mEq/L (20-26); Blood Gas FiO2 32 %; Blood Gas Liter Flow 3 L/MIN
--- NOTE | 2016-05-13 20:12 | Internal Med Progress Note ---
Date of Encounter: 05/13/16 Time of Encounter: 15:00 - Assessment and plan (1) Hypercalcemia of malignancy Current Visit: Yes Status: Acute Assessment and plan: IV fluids and Lasix. Patient was given calcitonin. We will give pamidronate. I discussed the case with oncology. Appreciate their input. CT of the chest shows multiple lytic lesions concerning for multiple myeloma. We will follow up with oncology. (2) Altered mental status Current Visit: Yes Status: Acute Assessment and plan: Likely secondary to hypercalcemia, possibly compounded by pre-existing dementia and delirium secondary to medical disease, possible infection. We will monitor mental status closely. We will treat his hypercalcemia. Check ABG to rule out hypercapnia as a possible cause for his altered mental status. Qualifiers: Altered mental status type: delirium Qualified Code(s): R41.0 - Disorientation, unspecified (3) ANN-MARIE (acute kidney injury) Current Visit: Yes Status: Acute Assessment and plan: Secondary to hypercalcemia, dehydration, nephrocalcinosis or possibly related to multiple myeloma. We will continue with IV fluid hydration. Avoid nephrotoxins. Monitor BUN and creatinine. (4) DVT prophylaxis Current Visit: Yes Status: Acute Assessment and plan: Subcutaneous heparin. (5) Acute bronchitis Current Visit: Yes Status: Acute Assessment and plan: We will treat this with inhaled bronchodilators and Levaquin. He is requiring more oxygen by nasal cannula, will add bronchodilators. We will check an ABG. Qualifiers: Bronchitis organism: unspecified organism Qualified Code(s): J20.9 - Acute bronchitis, unspecified - Subjective Interval history: Patient is more confused today than he was yesterday. He denies any headache vision changes or shortness of breath. In fact he says that his shortness of breath has improved over the last 2 days. He reports associated cough productive of dark green sputum. No fever or chills. SOB improving from yesterday , mental status improved, no associated cough. No nausea vomiting diarrhea. She presented yesterday was altered mental status and elevated calcium level. - Constitutional Vitals: Temp Pulse Resp BP Pulse Ox 97.9 F 83 20 125/83 97 05/13/16 15:00 05/13/16 19:52 05/13/16 19:52 05/13/16 19:52 05/13/16 19:52 General appearance: Present: A&O X 3 - Eye Eye exam: Present: PERRL, conjuntiva pink, sclera anicteric Pupils: Present: PERRL - Respiratory Respiratory exam: Present: CTAB. Absent: accessory muscle use, rales, rhonchi - Cardiovascular Cardiovascular exam: Present: RRR, +S1, +S2. Absent: diastolic murmur, gallop, rubs, systolic murmur - GI/Abdominal GI/Abdominal exam: Present: normal bowel sounds, soft, no peritoneal signs. Absent: distended, tenderness - Extremities Exam Extremities exam: Present: warm, radial pulses palpable and symetrical. Absent : calf tenderness, cyanotic, pedal edema - Skin Skin exam: Present: dry, intact Internal Medicine: Result - Labs CBC & Chem 7: 05/13/16 15:11 05/13/16 15:11 Labs: Short CBC 05/13/16 Range/Units 15:11 WBC 16.2 H D (4.3-11.1) K/mcL Hgb 13.2 (12.9-16.9) g/dL Hct 41.3 (37.5-50.1) % Plt Count 246 (140-400) K/mcL Neutrophils # 14.2 H (1.6-8.9) K/mcL BMP 05/13/16 15:11 Sodium 143 Potassium 3.7 Chloride 111 H Carbon Dioxide 23 BUN 27 H Creatinine 2.88 H Glucose 174 H Calcium 13.9 H* Liver Function 05/13/16 Range/Units 15:11 Total Bilirubin 0.8 (0.2-1.2) mg/dL AST 161 H (5-34) Units/L ALT 117 H (0-55) Units/L Alkaline Phosphatase 388 H (38-126) Units/L Albumin 3.4 L (3.5-5.0) g/dL - ABG Interpretation ABG results: ABG ABG pH 7.43 pH Units (7.32-7.45) 05/13/16 17:45 ABG pCO2 42 mmHg (35-45) 05/13/16 17:45 ABG pO2 72 mmHg (85-104) L 05/13/16 17:45 ABG O2 Saturation 95 % (95-98) 05/13/16 17:45 PT/INR, D-dimer PT 11.5 Seconds (9.4-12.1) 05/11/16 00:55 - Impressions Impressions Chest X-Ray 05/13/16 14:28 IMPRESSION: No evidence for new acute cardiopulmonary process. Lung parenchymal findings on recent CT chest not as well demonstrated on these chest x-rays. Reference can be made to the recent CT of the chest for additional information. Numerous small lytic bony lesions identified on the recent chest CT are also not well demonstrated on these chest x-rays. Again, reference can be made to the chest CT for additional information. D/ / 05/13/2016 14:53:00 Quinn Ramachandran MD / [facility] Interpreting Provider: Quinn Ramachandran MD Consult Discharge Plan - Plan Referrals: [facility] [Primary Care Provider] -
[2016-05-13] MEDS: Ondansetron 4 MG/2 ML VIAL IVP PRN (20:17)
[2016-05-13] MEDS: *HR* HYDROcodone/Acet 5/325 mg TABLET PO PRN (20:17)
[2016-05-13] MEDS: Gabapentin 100 MG CAPSULE PO SCH (20:17)
--- NOTE | 2016-05-13 21:31 | Electrocardiograph Report ---
[place] [id number] Test Date: 2016-05-11 Pat Name: David Trevino Department: 111 Room: 2NE19 Gender: M Sr. Merchandise Planner: [facility] : 1950 Requested By: Lc Shah Order Number: [id number] Reading MD: Nehemias Rod MD Measurements Intervals [place] Rate: 82 P: 60 KS: 196 QRS: 29 QRSD: 93 T: 39 QT: 360 QTc: 398 Interpretive Statements SINUS RHYTHM NONSPECIFIC T-WAVE ABNORMALITY Electronically Signed On 05-13-2016 21:29:30 EDT by Nehemias Rod MD
[2016-05-14] MEDS: Ipratropium/Albuterol Neb 3 ML IH SCH ×4 (04:50→22:01)
[2016-05-14 05:01] LABS: Basophils % 0.4 %; Eosinophils % 0.4 %; Hematocrit 34.8 % (37.5-50.1); Hemoglobin 11.3 g/dL (12.9-16.9); Immature Granulocytes % 2.3 % (0-4); Lymphocytes # 0.6 K/mcL (0.6-4.6); Lymphocytes % 5.9 %; Mean Corpuscular HGB Conc 32.5 g/dL (31.6-35.5); Mean Corpuscular Hemoglobin 27.8 pg (28.0-33.3); Mean Corpuscular Volume 85.5 fL (83.0-100.0); Mean Platelet Volume 11.5 fL (9.4-12.4); Monocytes # 0.6 K/mcL (0.0-1.3); Monocytes % 5.6 %; Neutrophils # 8.8 K/mcL (1.6-8.9); Platelet Count 173 K/mcL (140-400); Red Blood Count 4.07 M/mcL (4.19-5.50); Red Cell Distribution Width 13.4 % (11.5-14.5); Segmented Neutrophils % 85.4 %
[2016-05-14 05:15] LABS: Calcium 12.2 mg/dL (8.6-10.8); Potassium 3.3 mEq/L (3.5-4.5)
[2016-05-14] MEDS: 0.9 % Sodium Chloride 1,000 ML IVC SCH (05:52)
[2016-05-14] MEDS: *HR* Heparin 5,000 UNIT/ML VIAL SQ SCH ×2 (05:54→18:31)
[2016-05-14] MEDS: Sennosides 8.6 MG TABLET PO SCH ×2 (08:25→21:01)
[2016-05-14] MEDS: Aspirin 81 MG TAB.CHEW PO SCH (08:25)
[2016-05-14] MEDS: *HR* HYDROcodone/Acet 5/325 mg TABLET PO PRN ×2 (08:34→22:23)
[2016-05-14] MEDS: Calcitonin-Salmon, Synthetic 400 UNIT/2 ML VIAL SQ SCH ×2 (12:17→21:01)
--- NOTE | 2016-05-14 14:22 | Oncology Inp Progress Note ---
Date of Encounter: 05/14/16 Time of Encounter: 10:30 (1) Lytic bone lesions on xray Current Visit: Yes Status: Acute Assessment and plan: consult IR regarding bone biopsy. (2) Hypercalcemia of malignancy Current Visit: Yes Status: Acute Assessment and plan: Calcium 12.2- continue current treatment. Oncology: Subj Interval history: Patient seen and examined at bedside. The patient reports that he might be feeling a little better. He continues to have shortness of breath and is on O2 per nasal cannula. He also reports having general weakness, altered taste, fatigue, decreased appetite, back pain. On admission he was found to be hypercalemic. Calcium level from today was 12.2. On 05/12 He received Pamidronate, steroids and calcitonin. Did discuss with the patient having a bone biopsy to try to help us determine what type of cancer that we are dealing with. Multiple lytic lesions in the spine, sternum, humeri, ribs, He does have a history of prostate cancer and head and neck cancer. We have not received records from the [place]. Initially he seemed uncertain as to whether to have a bone biopsy however after discussion with his daughter and he decided to have the biopsy performed. We did discuss that these lesions are small and that interventional radiology would need to determine whether or not they are large enough for biopsy. - Constitutional Vitals: Vital Signs Temp Pulse Resp BP Pulse Ox 05/14/16 11:29 99 F 83 16 107/74 91 L 05/14/16 07:46 97.5 F L 103 16 123/80 88 L 05/14/16 04:52 18 92 L 05/14/16 04:46 98.6 F 97 18 130/75 89 L 05/14/16 00:24 98.2 F 77 18 133/77 87 L 05/13/16 22:49 18 92 L 05/13/16 20:00 98 05/13/16 19:52 83 20 125/83 97 05/13/16 15:00 97.9 F 81 15 121/61 93 L Intake and Output 05/13/16 05/14/16 05/14/16 23:59 07:59 15:59 Intake Total 1000 / 1000 240 / 240 Balance 1000 / 1000 240 / 240 Intake: IV Fluids 1000 / 1000 0.9 % Sodium Chloride 1, 1000 / 1000 000 ML @ 100 mls/hr IVC . Q10H LISA Rx#:[id number] Oral 0 / 0 240 / 240 Other: Meal Lunch Percent of Meal Consumed 0% # Voids 1 1 2 Weight 90 kg Patient Weight 05/14/16 23:59 Weight 90 kg General appearance: cooperative, mild distress - ENT ENT exam: Present: mucous membranes moist - Respiratory Respiratory exam: Present: decreased breath sounds (With no crackles rhonchi or wheezes), CTAB - Cardiovascular Cardiovascular exam: Present: RRR - GI/Abdominal GI/Abdominal exam: Present: soft (non tender) - Extremities Exam Extremities exam: Present: normal inspection - Neurological Exam Neurological exam: Present: alert, oriented X3 Oncology: Obj Data - Labs CBC & Chem 7: 05/14/16 04:36 05/14/16 04:36 Labs: Laboratory Results - last 24 hr 05/13/16 05/13/16 05/13/16 15:11 15:11 15:11 WBC 16.2 H D RBC 4.84 Hgb 13.2 Hct 41.3 MCV 85.3 MCH 27.3 L MCHC 32.0 RDW 13.5 Plt Count 246 MPV 11.1 Immature Gran % 1.6 Seg Neutrophils % 87.9 Lymphocytes % 4.3 Monocytes % 6.0 Eosinophils % 0.0 Basophils % 0.2 Neutrophils # 14.2 H Lymphocytes # 0.7 Monocytes # 1.0 Eosinophils # 0.0 Basophils # 0.0 ABG pH ABG pCO2 ABG pO2 ABG HCO3 ABG Total CO2 ABG O2 Saturation ABG Base Excess Liter Flow Blood Gas Modality Inspired O2 Sodium 143 Potassium 3.7 Chloride 111 H Carbon Dioxide 23 BUN 27 H Creatinine 2.88 H Est GFR ( Amer) 27 L Est GFR (Non-Af Amer) 22 L BUN/Creatinine Ratio 9 Glucose 174 H Calculated Osmolality 305 H Calcium 13.9 H* Total Bilirubin 0.8 AST 161 H ALT 117 H Alkaline Phosphatase 388 H Ammonia 28 Serum Total Protein 7.5 Albumin 3.4 L Globulin 4.1 H Albumin/Globulin Ratio 0.8 L 05/13/16 05/14/16 05/14/16 17:45 04:36 04:36 WBC 10.2 RBC 4.07 L Hgb 11.3 L D Hct 34.8 L MCV 85.5 MCH 27.8 L MCHC 32.5 RDW 13.4 Plt Count 173 MPV 11.5 Immature Gran % 2.3 Seg Neutrophils % 85.4 Lymphocytes % 5.9 Monocytes % 5.6 Eosinophils % 0.4 Basophils % 0.4 Neutrophils # 8.8 Lymphocytes # 0.6 Monocytes # 0.6 Eosinophils # 0.0 Basophils # 0.0 ABG pH 7.43 ABG pCO2 42 ABG pO2 72 L ABG HCO3 27.9 H ABG Total CO2 29.2 H ABG O2 Saturation 95 ABG Base Excess 3.2 H Liter Flow 3 Blood Gas Modality [place] Inspired O2 32 Sodium 145 Potassium 3.3 L Chloride 112 H Carbon Dioxide 24 BUN 27 H Creatinine 2.57 H Est GFR ( Amer) 30 L Est GFR (Non-Af Amer) 25 L BUN/Creatinine Ratio 11 Glucose 124 H Calculated Osmolality 307 H Calcium 12.2 H Total Bilirubin AST ALT Alkaline Phosphatase Ammonia Serum Total Protein Albumin Globulin Albumin/Globulin Ratio - Impressions Impressions Chest X-Ray 05/13/16 14:28 IMPRESSION: No evidence for new acute cardiopulmonary process. Lung parenchymal findings on recent CT chest not as well demonstrated on these chest x-rays. Reference can be made to the recent CT of the chest for additional information. Numerous small lytic bony lesions identified on the recent chest CT are also not well demonstrated on these chest x-rays. Again, reference can be made to the chest CT for additional information. D/ / 05/13/2016 14:53:00 Quinn Ramachandran MD / kiersten Interpreting Provider: Quinn Ramachandran MD - ABG Interpretation ABG results: ABG ABG pH 7.43 pH Units (7.32-7.45) 05/13/16 17:45 ABG pCO2 42 mmHg (35-45) 05/13/16 17:45 ABG pO2 72 mmHg (85-104) L 05/13/16 17:45 ABG O2 Saturation 95 % (95-98) 05/13/16 17:45 PT/INR, D-dimer PT 11.5 Seconds (9.4-12.1) 05/11/16 00:55 Consult Discharge Plan - Plan Referrals: [facility] [Primary Care Provider] -
[2016-05-14] MEDS: Levofloxacin 250 MG/50 ML 250 MG/50 ML BAG IVPB SCH (18:32)
[2016-05-14] MEDS: diazePAM 10 MG TABLET PO PRN (21:01)
[2016-05-14] MEDS: Gabapentin 100 MG CAPSULE PO SCH (22:21)
--- NOTE | 2016-05-14 22:23 | Internal Med Progress Note ---
Date of Encounter: 05/14/16 Time of Encounter: 13:00 - Assessment and plan (1) Hypercalcemia of malignancy Current Visit: Yes Status: Acute Assessment and plan: Calcium trending down, now within normal limits. Stop IV fluids. Patient was given calcitonin and pamidronate. I appreciate oncology input. CT of the chest shows multiple lytic lesions concerning for multiple myeloma. We will follow up with oncology. Plan for bone biopsy. (2) Altered mental status Current Visit: Yes Status: Acute Assessment and plan: Likely secondary to hypercalcemia, possibly compounded by pre-existing dementia and delirium secondary to medical disease, possible infection. We will monitor mental status closely. We will treat his hypercalcemia. ABG was negative and ruled out hypercapnia as a possible cause for his altered mental status. Qualifiers: Altered mental status type: delirium Qualified Code(s): R41.0 - Disorientation, unspecified (3) ANN-MARIE (acute kidney injury) Current Visit: Yes Status: Acute Assessment and plan: Secondary to hypercalcemia, dehydration, nephrocalcinosis or possibly related to multiple myeloma. We will continue with IV fluid hydration. Avoid nephrotoxins. Monitor BUN and creatinine. (4) DVT prophylaxis Current Visit: Yes Status: Acute Assessment and plan: Subcutaneous heparin. (5) Acute bronchitis Current Visit: Yes Status: Acute Assessment and plan: We will treat this with inhaled bronchodilators and Levaquin. He is requiring more oxygen by nasal cannula, will add bronchodilators. We will check an ABG. Qualifiers: Bronchitis organism: unspecified organism Qualified Code(s): J20.9 - Acute bronchitis, unspecified - Subjective Interval history: 05/14/2016: Patient is more alert today. He reports mild shortness of breath at rest, his oxygen requirements have increased to 4 L/m. His oxygen saturation is low 90s. 05/13/2016: Patient is more confused today than he was yesterday. He denies any headache vision changes or shortness of breath. In fact he says that his shortness of breath has improved over the last 2 days. He reports associated cough productive of dark green sputum. No fever or chills. SOB improving from yesterday , mental status improved, no associated cough. No nausea vomiting diarrhea. She presented yesterday was altered mental status and elevated calcium level. - Constitutional Vitals: Temp Pulse Resp BP Pulse Ox 99.1 F 98 16 121/71 91 L 05/14/16 15:22 05/14/16 15:22 05/14/16 15:22 05/14/16 15:22 05/14/16 15:22 General appearance: Present: A&O X 3 - Eye Eye exam: Present: PERRL, conjuntiva pink, sclera anicteric Pupils: Present: PERRL - Respiratory Respiratory exam: Present: CTAB. Absent: accessory muscle use, rales, rhonchi, wheezes - Cardiovascular Cardiovascular exam: Present: RRR, +S1, +S2. Absent: diastolic murmur, gallop, rubs, systolic murmur - GI/Abdominal GI/Abdominal exam: Present: normal bowel sounds, soft, no peritoneal signs. Absent: distended, tenderness - Neurological Exam Neurological exam: Present: CN II-XII intact, oriented X3, no focal deficits. Absent: pronater drift, facial droop, speech deficit Internal Medicine: Result - Labs CBC & Chem 7: 05/14/16 04:36 05/14/16 04:36 Labs: Short CBC 05/14/16 Range/Units 04:36 WBC 10.2 (4.3-11.1) K/mcL Hgb 11.3 L D (12.9-16.9) g/dL Hct 34.8 L (37.5-50.1) % Plt Count 173 (140-400) K/mcL Neutrophils # 8.8 (1.6-8.9) K/mcL BMP 05/14/16 04:36 Sodium 145 Potassium 3.3 L Chloride 112 H Carbon Dioxide 24 BUN 27 H Creatinine 2.57 H Glucose 124 H Calcium 12.2 H - ABG Interpretation ABG results: ABG ABG pH 7.43 pH Units (7.32-7.45) 05/13/16 17:45 ABG pCO2 42 mmHg (35-45) 05/13/16 17:45 ABG pO2 72 mmHg (85-104) L 05/13/16 17:45 ABG O2 Saturation 95 % (95-98) 05/13/16 17:45 PT/INR, D-dimer PT 11.5 Seconds (9.4-12.1) 05/11/16 00:55 - Impressions Impressions Pulmonary Perfusion Imaging 05/14/16 17:07 IMPRESSION: Low probability for pulmonary embolus. D/ / 05/14/2016 19:27:54 Quinn Ramachandran MD / tabitha Interpreting Provider: Quinn Ramachandran MD Consult Discharge Plan - Plan [facility]errals: [facility] [Primary Care Provider] -
[2016-05-15] MEDS: *HR* HYDROcodone/Acet 5/325 mg TABLET PO PRN ×3 (02:33→21:11)
[2016-05-15] MEDS: Ipratropium/Albuterol Neb 3 ML IH SCH ×4 (04:52→22:08)
[2016-05-15] MEDS: *HR* Heparin 5,000 UNIT/ML VIAL SQ SCH ×2 (05:18→17:48)
[2016-05-15 06:58] LABS: Mean Corpuscular HGB Conc 32.4 g/dL (31.6-35.5); Mean Corpuscular Hemoglobin 27.6 pg (28.0-33.3); Mean Corpuscular Volume 85.3 fL (83.0-100.0); Mean Platelet Volume 11.5 fL (9.4-12.4); Monocytes # 0.7 K/mcL (0.0-1.3); Platelet Count 201 K/mcL (140-400); Red Blood Count 4.34 M/mcL (4.19-5.50); Red Cell Distribution Width 13.4 % (11.5-14.5)
[2016-05-15 07:05] LABS: Calcium 11.1 mg/dL (8.6-10.8); Potassium 3.6 mEq/L (3.5-4.5)
[2016-05-15 08:17] LABS: Lymphocytes # 0.7 K/mcL (0.6-4.6); Neutrophils # 7.7 K/mcL (1.6-8.9)
[2016-05-15 08:18] LABS: Platelet Estimate Normal (Normal)
[2016-05-15] MEDS ORDERED: 0.9 % Sodium Chloride 500 ML ONE (11:41)
[2016-05-15] MEDS: Aspirin 81 MG TAB.CHEW PO SCH (13:14)
[2016-05-15] MEDS: Sennosides 8.6 MG TABLET PO SCH ×2 (13:14→21:11)
[2016-05-15] MEDS: Calcitonin-Salmon, Synthetic 400 UNIT/2 ML VIAL SQ SCH ×2 (13:15→21:10)
--- NOTE | 2016-05-15 15:07 | Internal Med Progress Note ---
Date of Encounter: 05/15/16 Time of Encounter: 15:04 - Assessment and plan (1) Hypercalcemia of malignancy Current Visit: Yes Status: Acute Assessment and plan: Calcium trending down from 14.1 to 11.1 NOted that patient underwent Bone biopsy for possible lytic lesion. will continue present management. (2) Altered mental status Current Visit: Yes Status: Acute Assessment and plan: much improved and noted that he is doing better. oncology on board and will follow recommendations. Qualifiers: Altered mental status type: delirium Qualified Code(s): R41.0 - Disorientation, unspecified (3) ANN-MARIE (acute kidney injury) Current Visit: Yes Status: Acute Assessment and plan: Unlikely ANN-MARIE possible renal involvement in MM (4) DVT prophylaxis Current Visit: Yes Status: Acute Assessment and plan: Subcutaneous heparin. - Subjective Interval history: seen and examined. no new complaints. noted that patient is scheduled for bone biopsy today. - Constitutional Vitals: Temp Pulse Resp BP Pulse Ox 97.4 F L 83 16 143/99 93 L 05/15/16 10:57 05/15/16 12:00 05/15/16 12:00 05/15/16 12:00 05/15/16 12:00 General appearance: Present: A&O X 3 - Head Head exam: Present: atraumatic, normocephalic - Eye Eye exam: Present: PERRL, conjuntiva pink, sclera anicteric Pupils: Present: PERRL - Neck Neck exam general surgery: Present: supple, trachea midline. Absent: lymphadenopathy - Respiratory Respiratory exam: Present: CTAB. Absent: accessory muscle use, rales, rhonchi, wheezes - Cardiovascular Cardiovascular exam: Present: RRR, +S1, +S2. Absent: diastolic murmur, gallop, rubs, systolic murmur - GI/Abdominal GI/Abdominal exam: Present: normal bowel sounds, soft, no peritoneal signs. Absent: distended, tenderness - Extremities Exam Extremities exam: Present: warm, radial pulses palpable and symetrical. Absent : calf tenderness, cyanotic, pedal edema - Neurological Exam Neurological exam: Present: CN II-XII intact, oriented X3, no focal deficits. Absent: pronater drift, facial droop, speech deficit - Skin Skin exam: Present: dry, intact Internal Medicine: Result - Labs CBC & Chem 7: 05/15/16 06:10 05/15/16 06:10 Labs: Short CBC 05/15/16 Range/Units 06:10 WBC 9.3 (4.3-11.1) K/mcL Hgb 12.0 L (12.9-16.9) g/dL Hct 37.0 L (37.5-50.1) % Plt Count 201 (140-400) K/mcL Neutrophils # 7.7 (1.6-8.9) K/mcL BMP 05/15/16 06:10 Sodium 143 Potassium 3.6 Chloride 109 Carbon Dioxide 23 BUN 24 Creatinine 2.12 H Glucose 101 H Calcium 11.1 H - ABG Interpretation ABG results: ABG ABG pH 7.43 pH Units (7.32-7.45) 05/13/16 17:45 ABG pCO2 42 mmHg (35-45) 05/13/16 17:45 ABG pO2 72 mmHg (85-104) L 05/13/16 17:45 ABG O2 Saturation 95 % (95-98) 05/13/16 17:45 PT/INR, D-dimer PT 11.5 Seconds (9.4-12.1) 05/11/16 00:55 - Impressions Impressions Pulmonary Perfusion Imaging 05/14/16 17:07 IMPRESSION: Low probability for pulmonary embolus. D/ / 05/14/2016 19:27:54 Quinn Ramachandran MD / tabitha Interpreting Provider: Quinn Ramachandran MD Bone Biopsy CT 05/15/16 00:00 IMPRESSION: Successful CT guided core biopsy left iliac bone. D/ / Justice Diamond MD / Justice Diamond MD Interpreting Provider: Justice Diamond MD Consult Discharge Plan - Plan [facility]errals: [facility] [Primary Care Provider] -
--- NOTE | 2016-05-15 15:55 | Oncology Inp Progress Note ---
Date of Encounter: 05/15/16 Time of Encounter: 12:00 (1) Hypercalcemia Current Visit: Yes Status: Acute Assessment and plan: -Patient with severe hypercalcemia and AMS-hx of head and neck cancer, s/p radiation and prostate ca s/p RT (PSA nl), with hx lung nodules CT chest wo contrast Lytic lesions lung nodules. S/P bone bx SPEP RODRICK pending. Ca cr trend improved. Pain control. CT abd with contrast at later date after cr improves I have discussed so far above results with patient's family who was at bed side. Oncology: Subj Interval history: Interim hx noted. hypoxemia, perfusion scan low probability. Back pain, otherwise resting comfortably. s/p bone bx - Constitutional Vitals: Vital Signs Temp Pulse Resp BP Pulse Ox 05/15/16 12:00 83 16 143/99 93 L 05/15/16 11:56 85 22 136/91 92 L 05/15/16 10:57 97.4 F L 104 16 133/74 92 L 05/15/16 10:08 18 92 L 05/15/16 07:13 98.1 F 91 16 120/72 91 L 05/15/16 04:52 18 93 L 05/15/16 04:00 98.1 F 85 19 123/72 92 L 05/14/16 22:00 81 17 126/85 93 L Intake and Output 05/14/16 05/15/16 05/15/16 23:59 07:59 15:59 Intake Total 50 / 50 0 / 0 360 / 360 Output Total 330 / 330 650 / 650 Balance -280 / -280 -650 / -650 360 / 360 Intake: IV Fluids 50 / 50 Levaquin 250 MG/50 ML 250 50 / 50 mg In 50 ml @ 50 mls/hr IVPB Q24H [facility] Rx#: [id number] Oral 0 / 0 0 / 0 360 / 360 Output: Urine 330 / 330 650 / 650 Other: Meal Lunch Percent of Meal Consumed 15% Stool Size Moderate Small Stool Consistency formed Stool Characteristics Normal for Patient Stool Color Brown # Voids 1 1 # Bowel Movements 1 1 Weight 89.2 kg Patient Weight 05/15/16 23:59 Weight 89.2 kg General appearance: obese - Head Head exam: Present: atraumatic, normal inspection - Eye Eye exam: Present: sclera anicteric - Neck Neck exam: Present: full ROM, normal inspection - Respiratory Respiratory exam: Present: CTAB - Cardiovascular Cardiovascular exam: Present: +S1, +S2 - Extremities Exam Extremities exam: Present: pedal edema - Neurological Exam Neurological exam: Present: alert, no focal deficits Oncology: Obj Data - Labs CBC & Chem 7: 05/15/16 06:10 05/15/16 06:10 Labs: Laboratory Results - last 24 hr 05/12/16 05/12/16 05/15/16 07:15 11:41 06:10 WBC 9.3 RBC 4.34 Hgb 12.0 L Hct 37.0 L MCV 85.3 MCH 27.6 L MCHC 32.4 RDW 13.4 Plt Count 201 MPV 11.5 Seg Neutrophils % 80.0 Band Neutrophils % 3.0 Lymphocytes % 8.0 Monocytes % 7.0 Metamyelocytes % 1.0 H Myelocytes % 1.0 H Neutrophils # 7.7 Lymphocytes # 0.7 Monocytes # 0.7 Platelet Estimate Normal Sodium Potassium Chloride Carbon Dioxide BUN Creatinine Est GFR ( Amer) Est GFR (Non-Af Amer) BUN/Creatinine Ratio Glucose POC Glucose 102 H 118 H Calculated Osmolality Calcium 05/15/16 06:10 WBC RBC Hgb Hct MCV MCH MCHC RDW Plt Count MPV Seg Neutrophils % Band Neutrophils % Lymphocytes % Monocytes % Metamyelocytes % Myelocytes % Neutrophils # Lymphocytes # Monocytes # Platelet Estimate Sodium 143 Potassium 3.6 Chloride 109 Carbon Dioxide 23 BUN 24 Creatinine 2.12 H Est GFR ( Amer) 38 L Est GFR (Non-Af Amer) 31 L BUN/Creatinine Ratio 11 Glucose 101 H POC Glucose Calculated Osmolality 300 Calcium 11.1 H - Impressions Impressions Pulmonary Perfusion Imaging 05/14/16 17:07 IMPRESSION: Low probability for pulmonary embolus. D/ / 05/14/2016 19:27:54 Quinn Ramachandran MD / tabitha Interpreting Provider: Quinn Ramachandran MD Bone Biopsy CT 05/15/16 00:00 IMPRESSION: Successful CT guided core biopsy left iliac bone. D/ / Justice Diamond MD / Justice Diamond MD Interpreting Provider: Justice Diamond MD - ABG Interpretation ABG results: ABG ABG pH 7.43 pH Units (7.32-7.45) 05/13/16 17:45 ABG pCO2 42 mmHg (35-45) 05/13/16 17:45 ABG pO2 72 mmHg (85-104) L 05/13/16 17:45 ABG O2 Saturation 95 % (95-98) 05/13/16 17:45 PT/INR, D-dimer PT 11.5 Seconds (9.4-12.1) 05/11/16 00:55 Consult Discharge Plan - Plan [facility]errals: [facility] [Primary Care Provider] -
[2016-05-15] MEDS: Levofloxacin 250 MG/50 ML 250 MG/50 ML BAG IVPB SCH (16:10)
[2016-05-15] MEDS: Gabapentin 100 MG CAPSULE PO SCH (21:11)
[2016-05-15] MEDS: diazePAM 10 MG TABLET PO PRN (21:13)
[2016-05-16] MEDS: *HR* HYDROcodone/Acet 5/325 mg TABLET PO PRN (04:35)
[2016-05-16] MEDS: Ipratropium/Albuterol Neb 3 ML IH SCH ×4 (04:46→22:54)
[2016-05-16] MEDS: *HR* Heparin 5,000 UNIT/ML VIAL SQ SCH ×2 (05:38→18:51)
[2016-05-16 06:08] LABS: Hematocrit 34.6 % (37.5-50.1); Hemoglobin 11.5 g/dL (12.9-16.9); Mean Corpuscular HGB Conc 33.2 g/dL (31.6-35.5); Mean Corpuscular Hemoglobin 27.9 pg (28.0-33.3); Platelet Count 190 K/mcL (140-400); Red Blood Count 4.12 M/mcL (4.19-5.50); Red Cell Distribution Width 13.5 % (11.5-14.5)
[2016-05-16 06:22] LABS: Albumin/Globulin Ratio 0.8 (1.1-2.2); Bilirubin,Total 0.8 mg/dL (0.2-1.2); Calcium 10.1 mg/dL (8.6-10.8); Globulin 3.5 g/dL (2.4-3.5); Potassium 3.5 mEq/L (3.5-4.5); Total Protein 6.2 g/dL (6.0-8.3)
[2016-05-16 06:30] LABS: Albumin 2.7 g/dL (3.5-5.0)
[2016-05-16 06:48] LABS: Lymphocytes # 1.6 K/mcL (0.6-4.6); Monocytes # 0.6 K/mcL (0.0-1.3); Neutrophils # 7.3 K/mcL (1.6-8.9); Platelet Estimate Normal (Normal)
[2016-05-16] MEDS: Aspirin 81 MG TAB.CHEW PO SCH (09:28)
[2016-05-16] MEDS: Sennosides 8.6 MG TABLET PO SCH ×2 (09:28→21:59)
[2016-05-16] MEDS: Calcitonin-Salmon, Synthetic 400 UNIT/2 ML VIAL SQ SCH ×2 (09:34→21:57)
[2016-05-16 10:16] LABS: Kappa Qnt Free Light Chains 2.34 mg/dL (0.33-1.94); Lambda Qnt Free Light Chains 1.63 mg/dL (0.57-2.63)
--- NOTE | 2016-05-16 10:23 | Internal Med Progress Note ---
<Cindy Armenta - Last Filed: 05/16/16 17:30> Date of Encounter: 05/16/16 Time of Encounter: 10:15 - Assessment and plan (1) Hypercalcemia of malignancy Current Visit: Yes Status: Acute Assessment and plan: - Lytic lesions found on Chest CT concerning for multiple myeloma. Patient received a bone biopsy yesterday and still awaiting results from pathology, which will likely be back on Saturday. - Calcium trending down from 11.1 to 10.1 - Continue SQ Calcitonin 325 units Q12HR - Oncology has been consulted and is following the patient. - Continue to monitor. (2) ANN-MARIE (acute kidney injury) Current Visit: Yes Status: Acute Assessment and plan: - Possibly due to renal involvement from Multiple Myeloma. - BUN at 25 today from 24 yesterday. Creatinine at 1.73 today, improved from 2.12 yesterday. - Encourage PO hydration - Continue to monitor (3) Altered mental status Current Visit: Yes Status: Resolved Assessment and plan: - Likely secondary to hypercalcemia on initial presentation. - Resolved as patient is more alert & oriented and able to make joke with his family at bedside. Qualifiers: Altered mental status type: unspecified Qualified Code(s): R41.82 - Altered mental status, unspecified (4) Acute bronchitis Current Visit: Yes Status: Acute Assessment and plan: - Breating continues to improve as his O2 is being titrated down. Overnight has was on 6L high flow nasal cannula and saturating at 96%. At bedside he was titrated down to 2L nasal cannula and was saturating between 92-94%. - Continue duonebs, albuterol, and Levaquin (Day 4). Qualifiers: Bronchitis organism: unspecified organism Qualified Code(s): J20.9 - Acute bronchitis, unspecified (5) DVT prophylaxis Current Visit: Yes Status: Acute Assessment and plan: - Subcutaneous heparin. - Subjective Interval history: 65 year old male with a history of throat cancer was admitted for generalized weakness and fatigue 5 days ago. Upon entering the room the patient was resting comfortably in bed in no acute distress. Patient states that he is feeling about the same as yesterday but per family members as bedside, patient seems to be more alert and oriented compared to yesterday. His main complaint right now is that he feels like he can get up and be more active but that we won 't let him. He still reports some SOB but states that it is not new for him. His O2 is currently being titrated down and at bedside he was on 2 L and saturating 92-94% and tolerating it well. He had barely touched his breakfast and reports not having much of an appetite and attributes that to just sitting in bed all day and not doing anything. He also reports intermittent headaches but states that they are really bad ones. He states that he was constipated but that it seems to be resolving now after receiving a medication for it. Patient reports that his cough is still present but that he always has a cough and this is not anything new for him. He denies any new or worsening symptoms. Patient denies fever, chest pain, abdominal pain, bowel or bladder symptoms, calf tenderness, loss of sensation. - Constitutional Vitals: Temp Pulse Resp BP Pulse Ox 99.7 F H 86 18 115/55 93 L 05/16/16 07:03 05/16/16 07:03 05/16/16 10:09 05/16/16 07:03 05/16/16 10:09 General appearance: Present: cooperative, A&O X 3, pleasant, no acute distress, answers questions appropriately - Head Head exam: Present: atraumatic, normal inspection, normocephalic - Eye Eye exam: Present: EOMI, normal appearance, PERRL, conjuntiva pink, sclera anicteric - Neck Neck exam general surgery: Present: supple, trachea midline. Absent: lymphadenopathy - Respiratory Respiratory exam: Present: rhonchi (Bilateral, L > R). Absent: accessory muscle use, respiratory distress, stridor, tachypnea - Cardiovascular Cardiovascular exam: Present: RRR, +S1, +S2. Absent: diastolic murmur, gallop, rubs, systolic murmur - GI/Abdominal GI/Abdominal exam: Present: normal bowel sounds, soft, no peritoneal signs. Absent: distended, tenderness - Extremities Exam Extremities exam: Present: warm, radial pulses palpable and symetrical. Absent : calf tenderness, cyanotic, pedal edema - Neurological Exam Neurological exam: Present: alert, CN II-XII intact, oriented X3, no focal deficits. Absent: facial droop, speech deficit - Skin Skin exam: Present: dry, intact, normal color. Absent: abrasion, erythema Internal Medicine: Result - Labs CBC & Chem 7: 05/16/16 05:42 05/16/16 05:42 Labs: Short CBC 05/16/16 Range/Units 05:42 WBC 9.9 (4.3-11.1) K/mcL Hgb 11.5 L (12.9-16.9) g/dL Hct 34.6 L (37.5-50.1) % Plt Count 190 (140-400) K/mcL Neutrophils # 7.3 (1.6-8.9) K/mcL BMP 05/16/16 05:42 Sodium 144 Potassium 3.5 Chloride 110 H Carbon Dioxide 23 BUN 25 Creatinine 1.73 H Glucose 117 H Calcium 10.1 Liver Function 05/16/16 Range/Units 05:42 Total Bilirubin 0.8 (0.2-1.2) mg/dL AST 131 H (5-34) Units/L ALT 112 H (0-55) Units/L Alkaline Phosphatase 365 H (38-126) Units/L Albumin 2.7 L D (3.5-5.0) g/dL - ABG Interpretation ABG results: ABG ABG pH 7.43 pH Units (7.32-7.45) 05/13/16 17:45 ABG pCO2 42 mmHg (35-45) 05/13/16 17:45 ABG pO2 72 mmHg (85-104) L 05/13/16 17:45 ABG O2 Saturation 95 % (95-98) 05/13/16 17:45 PT/INR, D-dimer PT 11.5 Seconds (9.4-12.1) 05/11/16 00:55 - Impressions Impressions Pulmonary Perfusion Imaging 05/14/16 17:07 IMPRESSION: Low probability for pulmonary embolus. D/ / 05/14/2016 19:27:54 Quinn Ramachandran MD / tabitha Interpreting Provider: Quinn Ramachandran MD Bone Biopsy CT 05/15/16 00:00 IMPRESSION: Successful CT guided core biopsy left iliac bone. D/ / Justice Diamond MD / Justice Diamond MD Interpreting Provider: Justice Diamond MD Consult Discharge Plan - Plan [facility]errals: [facility] [Primary Care Provider] - <Timur Westit P - Last Filed: 05/16/16 17:57> Date of Encounter: 05/16/16 - Assessment and plan (1) Hypercalcemia of malignancy Current Visit: Yes Status: Acute (2) Altered mental status Current Visit: Yes Status: Resolved Qualifiers: Altered mental status type: unspecified Qualified Code(s): R41.82 - Altered mental status, unspecified (3) ANN-MARIE (acute kidney injury) Current Visit: Yes Status: Acute (4) DVT prophylaxis Current Visit: Yes Status: Acute - Constitutional Vitals: Temp Pulse Resp BP Pulse Ox 98.2 F 88 18 121/77 95 05/16/16 15:30 05/16/16 15:30 05/16/16 16:04 05/16/16 15:30 05/16/16 16:04 Internal Medicine: Result - Labs CBC & Chem 7: 05/16/16 05:42 05/16/16 05:42 Labs: Short CBC 05/16/16 Range/Units 05:42 WBC 9.9 (4.3-11.1) K/mcL Hgb 11.5 L (12.9-16.9) g/dL Hct 34.6 L (37.5-50.1) % Plt Count 190 (140-400) K/mcL Neutrophils # 7.3 (1.6-8.9) K/mcL BMP 05/16/16 05:42 Sodium 144 Potassium 3.5 Chloride 110 H Carbon Dioxide 23 BUN 25 Creatinine 1.73 H Glucose 117 H Calcium 10.1 Liver Function 05/16/16 Range/Units 05:42 Total Bilirubin 0.8 (0.2-1.2) mg/dL AST 131 H (5-34) Units/L ALT 112 H (0-55) Units/L Alkaline Phosphatase 365 H (38-126) Units/L Albumin 2.7 L D (3.5-5.0) g/dL - ABG Interpretation ABG results: ABG ABG pH 7.43 pH Units (7.32-7.45) 05/13/16 17:45 ABG pCO2 42 mmHg (35-45) 05/13/16 17:45 ABG pO2 72 mmHg (85-104) L 05/13/16 17:45 ABG O2 Saturation 95 % (95-98) 05/13/16 17:45 PT/INR, D-dimer PT 11.5 Seconds (9.4-12.1) 05/11/16 00:55 - Attending Attestation I examined this patient and my medical decision-making was reviewed with the [employer]PER[employer]/PA/Advanced Practice Nurse/Resident Physician. I agree with the documented findings, disposition and treatment plan as described except to the extent set forth below. Had a prolonged Kiirll with the patient and patient's family. All questions answered. Expected pathology report either on Saturday or early next week Saturday
[2016-05-16 15:41] LABS: Alpha 2 Globulin (PEP) 0.93 g/dL (0.48-1.05); Beta Globulin (PEP) 0.88 g/dL (0.48-1.10)
[2016-05-16] MEDS: Levofloxacin 250 MG/50 ML 250 MG/50 ML BAG IVPB SCH (18:51)
[2016-05-16] MEDS: Megestrol Acetate 400 MG/10 ML UDC PO SCH (18:51)
[2016-05-16] MEDS: *HR* HYDROcodone/Acet 7.5/325 mg TABLET PO PRN (18:58)
[2016-05-16] MEDS: Gabapentin 100 MG CAPSULE PO SCH (21:59)
[2016-05-16] MEDS: diazePAM 10 MG TABLET PO PRN (22:10)
[2016-05-17] MEDS: Ipratropium/Albuterol Neb 3 ML IH SCH ×4 (04:32→22:48)
[2016-05-17] MEDS: *HR* HYDROcodone/Acet 7.5/325 mg TABLET PO PRN ×2 (05:49→21:59)
[2016-05-17] MEDS: *HR* Heparin 5,000 UNIT/ML VIAL SQ SCH ×2 (05:51→17:04)
[2016-05-17 06:04] LABS: Eosinophils # 0.2 K/mcL (0.0-0.6); Hematocrit 34.8 % (37.5-50.1); Hemoglobin 11.4 g/dL (12.9-16.9); Mean Corpuscular HGB Conc 32.8 g/dL (31.6-35.5); Mean Corpuscular Hemoglobin 27.2 pg (28.0-33.3); Mean Corpuscular Volume 83.1 fL (83.0-100.0); Mean Platelet Volume 11.1 fL (9.4-12.4); Nucleated Red Blood Cells 0.2 /100 WBC (0); Platelet Count 194 K/mcL (140-400); Red Blood Count 4.19 M/mcL (4.19-5.50); Red Cell Distribution Width 13.5 % (11.5-14.5)
[2016-05-17 06:23] LABS: Calcium 9.6 mg/dL (8.6-10.8)
[2016-05-17 06:32] LABS: Basophils # 0.2 K/mcL (0.0-0.2); Lymphocytes # 1.8 K/mcL (0.6-4.6); Monocytes # 0.9 K/mcL (0.0-1.3); Neutrophils # 5.9 K/mcL (1.6-8.9); Platelet Estimate Normal (Normal)
[2016-05-17 07:28] LABS: Magnesium 1.6 mg/dL (1.6-2.6)
--- NOTE | 2016-05-17 08:29 | Internal Med Progress Note ---
<Cindy Armenta - Last Filed: 05/17/16 14:14> Date of Encounter: 05/16/16 Time of Encounter: 08:25 - Assessment and plan (1) Hypercalcemia of malignancy Current Visit: Yes Status: Acute Assessment and plan: - Lytic lesions found on Chest CT concerning for multiple myeloma. Patient received a bone biopsy Saturday and still awaiting results from pathology, which will likely be back on Saturday or even Saturday. - Calcium trending down from 10.1 to 9.6 - Continue SQ Calcitonin 325 units Q12HR - Oncology has been consulted and is following the patient. - Continue to monitor. (2) ANN-MARIE (acute kidney injury) Current Visit: Yes Status: Acute Assessment and plan: - Possibly due to renal involvement from Multiple Myeloma. - BUN at 21 today from 25 yesterday. Creatinine at 1.55 today, improved from 1.73 yesterday. - Encourage PO hydration - Continue to monitor (3) Altered mental status Current Visit: Yes Status: Resolved Assessment and plan: - Likely secondary to hypercalcemia on initial presentation. - Resolved as patient is more alert & oriented and able to make jokes with his family at bedside. Qualifiers: Altered mental status type: unspecified Qualified Code(s): R41.82 - Altered mental status, unspecified (4) Acute bronchitis Current Visit: Yes Status: Acute Assessment and plan: - Breating continues to improve as his O2 is being titrated down. Was put on 1L O2 yesterday afternoon and has been tolerating it well saturating between 93- 97%. - Continue duonebs, albuterol, and Levaquin (Day 5). Qualifiers: Bronchitis organism: unspecified organism Qualified Code(s): J20.9 - Acute bronchitis, unspecified (5) DVT prophylaxis Current Visit: Yes Status: Acute Assessment and plan: - Subcutaneous heparin. - Subjective Interval history: 65 year old male with a history of throat cancer was admitted for generalized weakness and fatigue 5 days ago. Upon entering the room the patient was sleeping comfortably in bed in no acute distress. Patient reports that he feels pretty good again today and is anxious to go home. He was informed that we are still waiting for the biopsy results and that is what is holding him up. He states that his bowels have been moving pretty well since receiving medication for constipation. He reports that his breathing is good and he has had no issues with SOB. He was titrated down to 1L of O2 yesterday afternoon and has been tolerating it well saturating in the low to mid 90's. He denies fever, chest pain, SOB, bowel or bladder symptoms, calf tenderness. - Constitutional Vitals: Temp Pulse Resp BP Pulse Ox 98.6 F 82 17 116/78 94 L 05/16/16 19:00 05/17/16 02:45 05/17/16 04:33 05/17/16 02:45 05/17/16 04:33 General appearance: Present: cooperative, A&O X 3, pleasant, no acute distress, answers questions appropriately - Head Head exam: Present: atraumatic, normal inspection, normocephalic - Eye Eye exam: Present: EOMI, normal appearance, PERRL, conjuntiva pink, sclera anicteric - Neck Neck exam general surgery: Present: supple, trachea midline. Absent: lymphadenopathy - Respiratory Respiratory exam: Present: rhonchi (slightly improved from yesterday). Absent: accessory muscle use, respiratory distress, stridor, tachypnea - Cardiovascular Cardiovascular exam: Present: RRR, +S1, +S2. Absent: diastolic murmur, gallop, rubs, systolic murmur - GI/Abdominal GI/Abdominal exam: Present: normal bowel sounds, soft, tenderness (mild tenderness to palpation in mid epigastric region), no peritoneal signs. Absent : distended, guarding - Extremities Exam Extremities exam: Present: warm, radial pulses palpable and symetrical. Absent : calf tenderness, cyanotic, pedal edema - Neurological Exam Neurological exam: Present: alert, CN II-XII intact, oriented X3, no focal deficits. Absent: facial droop, speech deficit - Skin Skin exam: Present: dry, intact, normal color. Absent: erythema, rash Internal Medicine: Result - Labs CBC & Chem 7: 05/17/16 05:13 05/17/16 05:13 Labs: Short CBC 05/17/16 Range/Units 05:13 WBC 9.0 (4.3-11.1) K/mcL Hgb 11.4 L (12.9-16.9) g/dL Hct 34.8 L (37.5-50.1) % Plt Count 194 (140-400) K/mcL Neutrophils # 5.9 (1.6-8.9) K/mcL BMP 05/17/16 05:13 Sodium 140 Potassium 3.0 L Chloride 106 Carbon Dioxide 23 BUN 21 Creatinine 1.55 H Glucose 106 H Calcium 9.6 - ABG Interpretation ABG results: ABG ABG pH 7.43 pH Units (7.32-7.45) 05/13/16 17:45 ABG pCO2 42 mmHg (35-45) 05/13/16 17:45 ABG pO2 72 mmHg (85-104) L 05/13/16 17:45 ABG O2 Saturation 95 % (95-98) 05/13/16 17:45 PT/INR, D-dimer PT 11.5 Seconds (9.4-12.1) 05/11/16 00:55 Consult Discharge Plan - Plan [facility]errals: [facility]Primary Care Provider[facility] - <Ronaldo West P - Last Filed: 05/17/16 17:47> Date of Encounter: 05/16/16 - Assessment and plan (1) Hypercalcemia of malignancy Current Visit: Yes Status: Acute (2) Altered mental status Current Visit: Yes Status: Resolved Qualifiers: Altered mental status type: unspecified Qualified Code(s): R41.82 - Altered mental status, unspecified (3) ANN-MARIE (acute kidney injury) Current Visit: Yes Status: Acute (4) DVT prophylaxis Current Visit: Yes Status: Acute - Constitutional Vitals: Temp Pulse Resp BP Pulse Ox 97.8 F 110 18 126/79 94 L 05/17/16 16:20 05/17/16 16:20 05/17/16 16:20 05/17/16 16:20 05/17/16 16:20 Internal Medicine: Result - Labs CBC & Chem 7: 05/17/16 05:13 05/17/16 05:13 Labs: Short CBC 05/17/16 Range/Units 05:13 WBC 9.0 (4.3-11.1) K/mcL Hgb 11.4 L (12.9-16.9) g/dL Hct 34.8 L (37.5-50.1) % Plt Count 194 (140-400) K/mcL Neutrophils # 5.9 (1.6-8.9) K/mcL BMP 05/17/16 05:13 Sodium 140 Potassium 3.0 L Chloride 106 Carbon Dioxide 23 BUN 21 Creatinine 1.55 H Glucose 106 H Calcium 9.6 - ABG Interpretation ABG results: ABG ABG pH 7.43 pH Units (7.32-7.45) 05/13/16 17:45 ABG pCO2 42 mmHg (35-45) 05/13/16 17:45 ABG pO2 72 mmHg (85-104) L 05/13/16 17:45 ABG O2 Saturation 95 % (95-98) 05/13/16 17:45 PT/INR, D-dimer PT 11.5 Seconds (9.4-12.1) 05/11/16 00:55 - Impressions Impressions Abdomen/Pelvis CT 05/17/16 16:00 IMPRESSION: 1. Asymmetric soft tissue thickening of the ascending colon suspicious for malignancy. Recommend colonoscopy for further evaluation. 2. Indistinct hypodensity in the right hepatic lobe suspicious for a mass. Recommend MRI of the liver for further evaluation. This may represent a metastasis. 3. Numerous lytic lesions throughout the axial skeleton and left iliac. Differential includes multiple myeloma and lytic metastasis. Please refer to pathology report from CT-guided biopsy of the left iliac lesion done on May 15, 2016. 4. Stable 4 mm noncalcified nodule in the right middle lobe, not significantly changed since March 16, 2015. 5. New 4 mm nodule in the right lower lobe. In the context of associated findings, this may represent a pulmonary metastasis. D/ / 05/17/2016 16:54:31 Sylvester Moncada MD / Betty Clemens Interpreting Provider: Sylvester Moncada MD - Attending Attestation I examined this patient and my medical decision-making was reviewed with the [employer] OPERATOR/PA/Advanced Practice Nurse/Resident Physician. I agree with the documented findings, disposition and treatment plan as described except to the extent set forth below. . noted CT has thickening of colon may need GI review
[2016-05-17] MEDS: Aspirin 81 MG TAB.CHEW PO SCH (08:50)
[2016-05-17] MEDS: Sennosides 8.6 MG TABLET PO SCH ×2 (08:50→21:22)
[2016-05-17] MEDS: Calcitonin-Salmon, Synthetic 400 UNIT/2 ML VIAL SQ SCH ×2 (08:50→21:22)
[2016-05-17] MEDS: Megestrol Acetate 400 MG/10 ML UDC PO SCH (08:50)
[2016-05-17] MEDS ORDERED: 0.9 % Sodium Chloride 1,000 ML IVC ONE (09:02)
[2016-05-17 11:26] LABS: IFE Reflexed NOT DONE
[2016-05-17] MEDS: levoFLOXacin 250 MG TABLET PO SCH (17:05)
[2016-05-17] MEDS: Gabapentin 100 MG CAPSULE PO SCH (21:22)
[2016-05-18] MEDS: Ipratropium/Albuterol Neb 3 ML IH SCH ×4 (04:19→23:55)
[2016-05-18] MEDS: *HR* Heparin 5,000 UNIT/ML VIAL SQ SCH ×2 (06:06→18:17)
[2016-05-18] MEDS: *HR* HYDROcodone/Acet 7.5/325 mg TABLET PO PRN (06:11)
[2016-05-18 06:40] LABS: Hematocrit 34.8 % (37.5-50.1); Hemoglobin 11.6 g/dL (12.9-16.9); Mean Corpuscular HGB Conc 33.3 g/dL (31.6-35.5); Mean Corpuscular Hemoglobin 27.6 pg (28.0-33.3); Mean Corpuscular Volume 82.9 fL (83.0-100.0); Monocytes # 0.8 K/mcL (0.0-1.3); Nucleated Red Blood Cells 0.5 /100 WBC (0); Platelet Count 196 K/mcL (140-400); Red Cell Distribution Width 13.8 % (11.5-14.5)
[2016-05-18 06:45] LABS: BUN/Creatinine Ratio 13 (6-26); Blood Urea Nitrogen 18 mg/dL (8-26); Calcium 9.1 mg/dL (8.6-10.8); Carbon Dioxide 21 mEq/L (19-29); Chloride 108 mEq/L (98-109); Glucose 89 mg/dL (70-99); Osmolality,Calculated 287 (280-300); Potassium 3.3 mEq/L (3.5-4.5); Sodium 138 mEq/L (136-145); eGFR For African Americans > 60 (> 60); eGFR For Non-African Americans 51 (> 60)
[2016-05-18 07:46] LABS: Eosinophils # 0.1 K/mcL (0.0-0.6); Lymphocytes # 1.3 K/mcL (0.6-4.6); Neutrophils # 8.1 K/mcL (1.6-8.9); Platelet Estimate Normal (Normal)
[2016-05-18 07:47] LABS: Large Platelets Present (Not Present)
[2016-05-18] MEDS: Aspirin 81 MG TAB.CHEW PO SCH (09:08)
[2016-05-18] MEDS: Sennosides 8.6 MG TABLET PO SCH ×2 (09:09→22:26)
[2016-05-18] MEDS: Megestrol Acetate 400 MG/10 ML UDC PO SCH (09:14)
[2016-05-18] MEDS: Calcitonin-Salmon, Synthetic 400 UNIT/2 ML VIAL SQ SCH (09:16)
--- NOTE | 2016-05-18 11:21 | Internal Med Progress Note ---
<Cindy Armenta - Last Filed: 05/18/16 15:47> Date of Encounter: 05/18/16 Time of Encounter: 10:30 - Assessment and plan (1) Hypercalcemia of malignancy Current Visit: Yes Status: Acute Assessment and plan: - Ca 17.5 on initial presentation. - Chest CT found new lytic lesions throughout the thoracic axial and appendicular skeleton, concerning of multiple myeloma. - S/p CT-guided core biopsy of left iliac bone. - Bone biopsy pathology report found small cell carcinoma. - CT A/P with IV & oral contrast on 05/17 found asymmetric soft tissue thickening of the ascending colon suspicious for malignancy. Case was discussed with GI and plan to have colonscopy on Saturday. - Serum Ca normalized with Ca 9.1 today. - Discontinue Calcitonin as its hypocalcemic effect diminishes after 24 to 48 hours - Oncology has been consulted and is following the patient. - Continue to monitor. (2) ANN-MARIE (acute kidney injury) Current Visit: Yes Status: Acute Assessment and plan: - SCr 3.42 on initial presentation. - Likely secondary to dehydration. - Continues to improve with SCr 1.39 today. - Encourage PO hydration - Will give IV NS 1L x1. - Continue to monitor (3) Altered mental status Current Visit: Yes Status: Resolved Assessment and plan: - Likely secondary to hypercalcemia on initial presentation. - Resolved as patient is more alert & oriented and able to make jokes with his family at bedside. Qualifiers: Altered mental status type: unspecified Qualified Code(s): R41.82 - Altered mental status, unspecified (4) Acute bronchitis Current Visit: Yes Status: Acute Assessment and plan: - Breating continues to improve as his O2 is being titrated down. - Continue Duonebs, albuterol, and Levaquin (Day 6). Qualifiers: Bronchitis organism: unspecified organism Qualified Code(s): J20.9 - Acute bronchitis, unspecified (5) DVT prophylaxis Current Visit: Yes Status: Acute Assessment and plan: - Subcutaneous heparin. - Subjective Interval history: No significant event noted overnight. Patient was seen and examined this morning. Patient reports doing okay and denies abdominal pain, chest pain, dyspnea, nausea, vomiting. - Constitutional Vitals: Temp Pulse Resp BP Pulse Ox 97.8 F 83 16 110/54 93 L 05/18/16 06:53 05/18/16 06:53 05/18/16 06:53 05/18/16 06:53 05/18/16 06:53 General appearance: Present: cooperative, A&O X 3, pleasant, no acute distress, answers questions appropriately - Head Head exam: Present: atraumatic, normocephalic - Eye Eye exam: Present: PERRL, conjuntiva pink, sclera anicteric Pupils: Present: PERRL - Neck Neck exam general surgery: Present: supple, trachea midline. Absent: lymphadenopathy - Respiratory Respiratory exam: Present: rhonchi (Some). Absent: accessory muscle use, rales , wheezes - Cardiovascular Cardiovascular exam: Present: RRR, +S1, +S2. Absent: diastolic murmur, gallop, rubs, systolic murmur - GI/Abdominal GI/Abdominal exam: Present: normal bowel sounds, soft, tenderness (mild tenderness to palpation in mid epigastric region), no peritoneal signs. Absent : distended - Extremities Exam Extremities exam: Present: warm, radial pulses palpable and symetrical. Absent : calf tenderness, cyanotic, pedal edema - Neurological Exam Neurological exam: Present: CN II-XII intact, oriented X3, no focal deficits. Absent: pronater drift, facial droop, speech deficit - Skin Skin exam: Present: dry, intact. Absent: erythema, rash Internal Medicine: Result - Labs CBC & Chem 7: 05/18/16 05:57 05/18/16 05:57 Labs: Short CBC 05/18/16 Range/Units 05:57 WBC 11.0 (4.3-11.1) K/mcL Hgb 11.6 L (12.9-16.9) g/dL Hct 34.8 L (37.5-50.1) % Plt Count 196 (140-400) K/mcL Neutrophils # 8.1 (1.6-8.9) K/mcL BMP 05/18/16 05:57 Sodium 138 Potassium 3.3 L Chloride 108 Carbon Dioxide 21 BUN 18 Creatinine 1.39 H Glucose 89 Calcium 9.1 - ABG Interpretation ABG results: ABG ABG pH 7.43 pH Units (7.32-7.45) 05/13/16 17:45 ABG pCO2 42 mmHg (35-45) 05/13/16 17:45 ABG pO2 72 mmHg (85-104) L 05/13/16 17:45 ABG O2 Saturation 95 % (95-98) 05/13/16 17:45 PT/INR, D-dimer PT 11.5 Seconds (9.4-12.1) 05/11/16 00:55 - Impressions Impressions Abdomen/Pelvis CT 05/17/16 16:00 IMPRESSION: 1. Asymmetric soft tissue thickening of the ascending colon suspicious for malignancy. Recommend colonoscopy for further evaluation. 2. Indistinct hypodensity in the right hepatic lobe suspicious for a mass. Recommend MRI of the liver for further evaluation. This may represent a metastasis. 3. Numerous lytic lesions throughout the axial skeleton and left iliac. Differential includes multiple myeloma and lytic metastasis. Please refer to pathology report from CT-guided biopsy of the left iliac lesion done on May 15, 2016. 4. Stable 4 mm noncalcified nodule in the right middle lobe, not significantly changed since March 16, 2015. 5. New 4 mm nodule in the right lower lobe. In the context of associated findings, this may represent a pulmonary metastasis. D/ / 05/17/2016 16:54:31 Sylvester Moncada MD / Betty Clemens Interpreting Provider: Sylvester Moncada MD Consult Discharge Plan - Plan [facility]errals: [facility] [Primary Care Provider[facility] - <Ronaldo West P - Last Filed: 05/18/16 17:07> Date of Encounter: 05/18/16 - Assessment and plan (1) Hypercalcemia of malignancy Current Visit: Yes Status: Acute (2) Altered mental status Current Visit: Yes Status: Resolved Qualifiers: Altered mental status type: unspecified Qualified Code(s): R41.82 - Altered mental status, unspecified (3) ANN-MARIE (acute kidney injury) Current Visit: Yes Status: Acute (4) DVT prophylaxis Current Visit: Yes Status: Acute - Constitutional Vitals: Temp Pulse Resp BP Pulse Ox 98.2 F 117 16 112/77 94 05/18/16 15:00 05/18/16 15:00 05/18/16 16:01 05/18/16 15:00 05/18/16 16:01 Internal Medicine: Result - Labs CBC & Chem 7: 05/18/16 05:57 05/18/16 05:57 Labs: Short CBC 05/18/16 Range/Units 05:57 WBC 11.0 (4.3-11.1) K/mcL Hgb 11.6 L (12.9-16.9) g/dL Hct 34.8 L (37.5-50.1) % Plt Count 196 (140-400) K/mcL Neutrophils # 8.1 (1.6-8.9) K/mcL BMP 05/18/16 05:57 Sodium 138 Potassium 3.3 L Chloride 108 Carbon Dioxide 21 BUN 18 Creatinine 1.39 H Glucose 89 Calcium 9.1 - ABG Interpretation ABG results: ABG ABG pH 7.43 pH Units (7.32-7.45) 05/13/16 17:45 ABG pCO2 42 mmHg (35-45) 05/13/16 17:45 ABG pO2 72 mmHg (85-104) L 05/13/16 17:45 ABG O2 Saturation 95 % (95-98) 05/13/16 17:45 PT/INR, D-dimer PT 11.5 Seconds (9.4-12.1) 05/11/16 00:55 - Impressions Impressions Abdomen/Pelvis CT 05/17/16 16:00 IMPRESSION: 1. Asymmetric soft tissue thickening of the ascending colon suspicious for malignancy. Recommend colonoscopy for further evaluation. 2. Indistinct hypodensity in the right hepatic lobe suspicious for a mass. Recommend MRI of the liver for further evaluation. This may represent a metastasis. 3. Numerous lytic lesions throughout the axial skeleton and left iliac. Differential includes multiple myeloma and lytic metastasis. Please refer to pathology report from CT-guided biopsy of the left iliac lesion done on May 15, 2016. 4. Stable 4 mm noncalcified nodule in the right middle lobe, not significantly changed since March 16, 2015. 5. New 4 mm nodule in the right lower lobe. In the context of associated findings, this may represent a pulmonary metastasis. D/ / 05/17/2016 16:54:31 Sylvester Moncada MD / Betty Clemens Interpreting Provider: Sylvester Moncada MD - Attending Attestation I examined this patient and my medical decision-making was reviewed with the FIELD APPRAISER/PA/Advanced Practice Nurse/Resident Physician. I agree with the documented findings, disposition and treatment plan as described except to the extent set forth below. Spoke with the patient, patient's ( on phone), his sister and daughter. Explained at length the bone biopsy diagnosis: Metastatic small cell cancer. Patient also has obstructive lesion in the ascending colon. The gastroenterology was consulted. Patient will get probable colonoscopy on Saturday.
[2016-05-18] MEDS ORDERED: 0.9 % Sodium Chloride 1,000 ML IVC SCH (15:45)
[2016-05-18] MEDS ORDERED: SODIUM CHLORIDE 0.9% IV ONE (18:15)
[2016-05-18] MEDS ORDERED: ZOLEDRONIC ACID IV ONE (18:15)
[2016-05-18] MEDS: *HR* HYDROcodone/Acet 10/325 mg TABLET PO PRN ×2 (18:16→22:29)
[2016-05-18] MEDS: levoFLOXacin 250 MG TABLET PO SCH (18:18)
--- NOTE | 2016-05-18 18:20 | Oncology Inp Progress Note ---
Date of Encounter: 05/19/16 Time of Encounter: 18:17 (1) Small cell lung cancer Current Visit: Yes Status: Acute Assessment and plan: CT of abdomen and pelvis without contrast 05/11/2016 showed multiple axial skeletal bone metastasis and also left iliac metastasis Possible liver lesion 4 mm nodule right lower lobe CT chest 05/12/2016 showed numerous nodules right upper lobe largest around 9 mm. Biopsy of the bone 05/15/2016 showed small cell carcinoma with positive TTF-1 and synaptophysin VQ scan and low probability for PE He presented with hypercalcemia which is not that common with small cell cancer. Current calcium 9 He received pamidronate 30 mg IV one dose. He also has possible lesion in the ascending colon and colonoscopy recommended Likely small cell carcinomas pulmonary origin give TTF positive. but extrapulmonary origin cannot be excluded Treatment is still the same. We will consider treatment with carboplatin and etoposide soon. If needed would consider allopurinol 200 mg by mouth at bedtime to minimize tumor lysis syndrome. Possible tumor in the ascending colon and await colonoscopy on 05/21/2016 Qualifiers: Qualified Code(s): C34.90 - Malignant neoplasm of unspecified part of unspecified bronchus or lung - Constitutional Vitals: Vital Signs Temp Pulse Resp BP Pulse Ox 05/18/16 16:01 16 94 05/18/16 15:00 98.2 F 117 16 112/77 94 05/18/16 11:29 16 93 05/18/16 11:05 97.9 F 99 20 91 05/18/16 06:53 97.8 F 83 16 110/54 93 L 05/18/16 04:30 97.8 F 104 20 118/63 95 05/18/16 04:19 20 95 05/18/16 00:19 134/75 05/18/16 00:09 97.7 F 89 18 98/59 92 L 05/17/16 22:00 93 L 05/17/16 19:43 97.5 F L 89 18 130/80 93 L Intake and Output 05/18/16 05/18/16 05/18/16 07:59 15:59 23:59 Intake Total 240 / 240 700 / 700 Output Total 150 / 150 Balance 240 / 240 550 / 550 Intake: Oral 240 / 240 700 / 700 Output: Urine 150 / 150 Other: Meal Breakfast Percent of Meal Consumed 90% # Voids 1 1 # Bowel Movements 1 Weight 86 kg 86 kg Patient Weight 05/18/16 23:59 Weight 86 kg Exam: GENERAL: Alert and oriented, well appearing. Mental mild difficulty swallowing HEENT: Sclerae anicteric. No mucositis or thrush. No other oral or pharyngeal lesions or erythema. Skin: No rashes or petechiae. No evidence of skin malignancy Lymph nodes: No cervical, supraclavicular, axillary, or inguinal adenopathy. Lungs: Clear to auscultation and percussion bilaterally. No wheezes or rhonchi Cardiovascular: Regular rate and rhythm. No gallops, murmurs, or rubs. Abdomen: Soft, nontender; no organomegaly or masses palpable. Extremities:( 1+ edema. No calf swelling or tenderness. No joint deformity. Neurologic: Alert, cranial nerves II-XII intact; normal gait; no focal weakness or sensory abnormalities. Oncology: Obj Data - Labs CBC & Chem 7: 05/19/16 06:40 05/19/16 06:40 Labs: Laboratory Results - last 24 hr 05/18/16 05/18/16 05:57 05:57 WBC 11.0 RBC 4.20 Hgb 11.6 L Hct 34.8 L MCV 82.9 L MCH 27.6 L MCHC 33.3 RDW 13.8 Plt Count 196 MPV 11.0 Seg Neutrophils % 71.0 Band Neutrophils % 3.0 Lymphocytes % 12.0 Monocytes % 7.0 Eosinophils % 1.0 Metamyelocytes % 6.0 H Neutrophils # 8.1 Lymphocytes # 1.3 Monocytes # 0.8 Eosinophils # 0.1 Nucleated RBCs/100 WBC 0.5 H Platelet Estimate Normal Large Platelets Present A Sodium 138 Potassium 3.3 L Chloride 108 Carbon Dioxide 21 BUN 18 Creatinine 1.39 H Est GFR ( Amer) > 60 Est GFR (Non-Af Amer) 51 L BUN/Creatinine Ratio 13 Glucose 89 Calculated Osmolality 287 Calcium 9.1 - Impressions Impressions Abdomen/Pelvis CT 05/17/16 16:00 IMPRESSION: 1. Asymmetric soft tissue thickening of the ascending colon suspicious for malignancy. Recommend colonoscopy for further evaluation. 2. Indistinct hypodensity in the right hepatic lobe suspicious for a mass. Recommend MRI of the liver for further evaluation. This may represent a metastasis. 3. Numerous lytic lesions throughout the axial skeleton and left iliac. Differential includes multiple myeloma and lytic metastasis. Please refer to pathology report from CT-guided biopsy of the left iliac lesion done on May 15, 2016. 4. Stable 4 mm noncalcified nodule in the right middle lobe, not significantly changed since March 16, 2015. 5. New 4 mm nodule in the right lower lobe. In the context of associated findings, this may represent a pulmonary metastasis. D/ / 05/17/2016 16:54:31 Sylvester Moncada MD / Betty Clemens Interpreting Provider: Sylvester Moncada MD - ABG Interpretation ABG results: ABG ABG pH 7.43 pH Units (7.32-7.45) 05/13/16 17:45 ABG pCO2 42 mmHg (35-45) 05/13/16 17:45 ABG pO2 72 mmHg (85-104) L 05/13/16 17:45 ABG O2 Saturation 95 % (95-98) 05/13/16 17:45 PT/INR, D-dimer PT 11.5 Seconds (9.4-12.1) 05/11/16 00:55 Consult Discharge Plan - Plan [facility]errals: [facility] [Primary Care Provider] -
[2016-05-18] MEDS: Gabapentin 100 MG CAPSULE PO SCH (22:26)
[2016-05-19] MEDS: Ipratropium/Albuterol Neb 3 ML IH SCH ×4 (04:31→22:47)
[2016-05-19] MEDS: *HR* Heparin 5,000 UNIT/ML VIAL SQ SCH ×2 (05:43→16:49)
[2016-05-19 07:37] LABS: Hematocrit 34.5 % (37.5-50.1); Hemoglobin 11.5 g/dL (12.9-16.9); Mean Corpuscular HGB Conc 33.3 g/dL (31.6-35.5); Mean Corpuscular Hemoglobin 27.8 pg (28.0-33.3); Mean Corpuscular Volume 83.3 fL (83.0-100.0); Mean Platelet Volume 11.2 fL (9.4-12.4); Monocytes # 0.7 K/mcL (0.0-1.3); Nucleated Red Blood Cells 0.2 /100 WBC (0); Platelet Count 188 K/mcL (140-400); Red Blood Count 4.14 M/mcL (4.19-5.50); Red Cell Distribution Width 14.1 % (11.5-14.5)
[2016-05-19 07:38] LABS: Alanine Aminotransferase 152 Units/L (0-55); Albumin 2.6 g/dL (3.5-5.0); Albumin/Globulin Ratio 0.7 (1.1-2.2); Alkaline Phosphatase 494 Units/L (38-126); BUN/Creatinine Ratio 13 (6-26); Bilirubin,Total 0.7 mg/dL (0.2-1.2); Blood Urea Nitrogen 18 mg/dL (8-26); Carbon Dioxide 19 mEq/L (19-29); Chloride 111 mEq/L (98-109); Globulin 3.9 g/dL (2.4-3.5); Glucose 118 mg/dL (70-99); Osmolality,Calculated 293 (280-300); Potassium 4.1 mEq/L (3.5-4.5); Sodium 140 mEq/L (136-145); Total Protein 6.5 g/dL (6.0-8.3); eGFR For African Americans > 60 (> 60); eGFR For Non-African Americans 52 (> 60)
[2016-05-19 07:44] LABS: Aspartate Amino Transferase 171 Units/L (5-34)
[2016-05-19] MEDS: Sennosides 8.6 MG TABLET PO SCH ×2 (08:46→19:52)
[2016-05-19] MEDS: Megestrol Acetate 400 MG/10 ML UDC PO SCH (08:47)
[2016-05-19] MEDS: *HR* HYDROcodone/Acet 10/325 mg TABLET PO PRN ×2 (08:47→16:52)
[2016-05-19] MEDS: Aspirin 81 MG TAB.CHEW PO SCH (08:47)
[2016-05-19 09:27] LABS: Basophils # 0.2 K/mcL (0.0-0.2); Eosinophils # 0.5 K/mcL (0.0-0.6); Lymphocytes # 2.1 K/mcL (0.6-4.6); Neutrophils # 8.1 K/mcL (1.6-8.9); Platelet Estimate Normal (Normal)
--- NOTE | 2016-05-19 09:45 | Internal Med Progress Note ---
<Cindy Armenta - Last Filed: 05/19/16 12:42> Date of Encounter: 05/19/16 Time of Encounter: 09:30 - Assessment and plan (1) Hypercalcemia of malignancy Current Visit: Yes Status: Acute Assessment and plan: - Ca 17.5 on initial presentation. - Chest CT found new lytic lesions throughout the thoracic axial and appendicular skeleton, concerning of multiple myeloma. - S/p CT-guided core biopsy of left iliac bone. 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 - CT A/P with IV & oral contrast on 05/17 found asymmetric soft tissue thickening of the ascending colon suspicious for malignancy. Case was discussed with GI and plan to have colonoscopy on tomorrow. - Serum Ca normalized with Ca 9.0 today. - Oncology has been consulted and is following the patient. - Continue to monitor. (2) ANN-MARIE (acute kidney injury) Current Visit: Yes Status: Acute Assessment and plan: - SCr 3.42 on initial presentation. - Likely secondary to dehydration. - Continues to improve with SCr 1.37 today. - Encourage PO hydration - Continue to monitor (3) Acute bronchitis Current Visit: Yes Status: Acute Assessment and plan: - Respiratory status improved. - Continue Duonebs, albuterol, and Levaquin (Day 7). Qualifiers: Bronchitis organism: unspecified organism Qualified Code(s): J20.9 - Acute bronchitis, unspecified (4) Altered mental status Current Visit: Yes Status: Resolved Assessment and plan: - Likely secondary to hypercalcemia on initial presentation. - Resolved as patient is more alert & oriented and able to make jokes with his family at bedside. Qualifiers: Altered mental status type: unspecified Qualified Code(s): R41.82 - Altered mental status, unspecified (5) DVT prophylaxis Current Visit: Yes Status: Acute Assessment and plan: - Subcutaneous heparin. - Subjective Interval history: No significant event noted overnight. Patient was seen and examined this morning. Patient reports doing okay and has no complaint. He denies abdominal pain, chest pain, dyspnea, nausea, vomiting. - Constitutional Vitals: Temp Pulse Resp BP Pulse Ox 99.3 F 84 16 107/60 95 05/19/16 06:39 05/19/16 06:39 05/19/16 06:39 05/19/16 06:39 05/19/16 06:39 General appearance: Present: cooperative, A&O X 3, pleasant, no acute distress, answers questions appropriately - Head Head exam: Present: atraumatic, normocephalic - Eye Eye exam: Present: PERRL, conjuntiva pink, sclera anicteric - Neck Neck exam general surgery: Present: supple, trachea midline. Absent: lymphadenopathy - Respiratory Respiratory exam: Present: CTAB. Absent: accessory muscle use, rales, rhonchi, wheezes - Cardiovascular Cardiovascular exam: Present: RRR, +S1, +S2. Absent: diastolic murmur, gallop, rubs, systolic murmur - GI/Abdominal GI/Abdominal exam: Present: normal bowel sounds, soft, no peritoneal signs. Absent: distended, tenderness - Extremities Exam Extremities exam: Present: warm, radial pulses palpable and symetrical. Absent : calf tenderness, cyanotic, pedal edema - Neurological Exam Neurological exam: Present: CN II-XII intact, oriented X3, no focal deficits. Absent: pronater drift, facial droop, speech deficit - Skin Skin exam: Present: dry, intact Internal Medicine: Result - Labs CBC & Chem 7: 05/19/16 06:40 05/19/16 06:40 Labs: Short CBC 05/19/16 Range/Units 06:40 WBC 11.5 H (4.3-11.1) K/mcL Hgb 11.5 L (12.9-16.9) g/dL Hct 34.5 L (37.5-50.1) % Plt Count 188 (140-400) K/mcL Neutrophils # 8.1 (1.6-8.9) K/mcL BMP 05/19/16 06:40 Sodium 140 Potassium 4.1 Chloride 111 H Carbon Dioxide 19 BUN 18 Creatinine 1.37 H Glucose 118 H Calcium 9.0 Liver Function 05/19/16 Range/Units 06:40 Total Bilirubin 0.7 (0.2-1.2) mg/dL AST 171 H (5-34) Units/L ALT 152 H (0-55) Units/L Alkaline Phosphatase 494 H (38-126) Units/L Albumin 2.6 L (3.5-5.0) g/dL - ABG Interpretation ABG results: ABG ABG pH 7.43 pH Units (7.32-7.45) 05/13/16 17:45 ABG pCO2 42 mmHg (35-45) 05/13/16 17:45 ABG pO2 72 mmHg (85-104) L 05/13/16 17:45 ABG O2 Saturation 95 % (95-98) 05/13/16 17:45 PT/INR, D-dimer PT 11.5 Seconds (9.4-12.1) 05/11/16 00:55 Consult Discharge Plan - Plan [facility]: [facility] Provider[facility] - <Ronaldo West P - Last Filed: 05/19/16 18:01> Date of Encounter: 05/19/16 - Assessment and plan (1) Hypercalcemia of malignancy Current Visit: Yes Status: Acute (2) Altered mental status Current Visit: Yes Status: Resolved Qualifiers: Altered mental status type: unspecified Qualified Code(s): R41.82 - Altered mental status, unspecified (3) ANN-MARIE (acute kidney injury) Current Visit: Yes Status: Acute (4) DVT prophylaxis Current Visit: Yes Status: Acute - Constitutional Vitals: Temp Pulse Resp BP Pulse Ox 97.4 F L 82 18 104/63 95 05/19/16 16:09 05/19/16 16:09 05/19/16 16:09 05/19/16 16:09 05/19/16 16:09 Internal Medicine: Result - Labs CBC & Chem 7: 05/19/16 06:40 05/19/16 06:40 Labs: Short CBC 05/19/16 Range/Units 06:40 WBC 11.5 H (4.3-11.1) K/mcL Hgb 11.5 L (12.9-16.9) g/dL Hct 34.5 L (37.5-50.1) % Plt Count 188 (140-400) K/mcL Neutrophils # 8.1 (1.6-8.9) K/mcL BMP 05/19/16 06:40 Sodium 140 Potassium 4.1 Chloride 111 H Carbon Dioxide 19 BUN 18 Creatinine 1.37 H Glucose 118 H Calcium 9.0 Liver Function 05/19/16 Range/Units 06:40 Total Bilirubin 0.7 (0.2-1.2) mg/dL AST 171 H (5-34) Units/L ALT 152 H (0-55) Units/L Alkaline Phosphatase 494 H (38-126) Units/L Albumin 2.6 L (3.5-5.0) g/dL - ABG Interpretation ABG results: ABG ABG pH 7.43 pH Units (7.32-7.45) 05/13/16 17:45 ABG pCO2 42 mmHg (35-45) 05/13/16 17:45 ABG pO2 72 mmHg (85-104) L 05/13/16 17:45 ABG O2 Saturation 95 % (95-98) 05/13/16 17:45 PT/INR, D-dimer PT 11.5 Seconds (9.4-12.1) 05/11/16 00:55 - Attending Attestation I examined this patient and my medical decision-making was reviewed with the PERSONAL LINES ACCOUNT MANAGER/PA/Advanced Practice Nurse/Resident Physician. I agree with the documented findings, disposition and treatment plan as described except to the extent set forth below.
[2016-05-19] MEDS ORDERED: SODIUM CHLORIDE/NAHCO3/KCL/PEG 4,000 ML SOLN.RECON PO ONE (11:38)
[2016-05-19] MEDS: levoFLOXacin 250 MG TABLET PO SCH (16:49)
[2016-05-19] MEDS ORDERED: diazePAM 5 MG TABLET PO ONE (16:57)
[2016-05-19] MEDS: Gabapentin 100 MG CAPSULE PO SCH (19:52)
[2016-05-20] MEDS: *HR* Heparin 5,000 UNIT/ML VIAL SQ SCH ×2 (04:09→16:01)
[2016-05-20] MEDS: *HR* HYDROcodone/Acet 10/325 mg TABLET PO PRN ×3 (04:13→16:01)
[2016-05-20 04:15] LABS: Hemoglobin 11.7 g/dL (12.9-16.9); Mean Corpuscular HGB Conc 32.5 g/dL (31.6-35.5); Mean Corpuscular Hemoglobin 27.1 pg (28.0-33.3); Mean Corpuscular Volume 83.3 fL (83.0-100.0); Mean Platelet Volume 10.6 fL (9.4-12.4); Nucleated Red Blood Cells 0.2 /100 WBC (0); Platelet Count 189 K/mcL (140-400); Red Blood Count 4.32 M/mcL (4.19-5.50); Red Cell Distribution Width 14.4 % (11.5-14.5)
[2016-05-20 04:23] LABS: INR 1.2; Prothrombin Time 13.1 Seconds (9.4-12.1)
[2016-05-20] MEDS: Ipratropium/Albuterol Neb 3 ML IH SCH ×4 (04:26→23:24)
[2016-05-20 04:30] LABS: Alanine Aminotransferase 149 Units/L (0-55); Albumin 2.8 g/dL (3.5-5.0); Albumin/Globulin Ratio 0.8 (1.1-2.2); Alkaline Phosphatase 542 Units/L (38-126); Aspartate Amino Transferase 161 Units/L (5-34); BUN/Creatinine Ratio 12 (6-26); Bilirubin,Total 0.9 mg/dL (0.2-1.2); Blood Urea Nitrogen 15 mg/dL (8-26); Calcium 9.7 mg/dL (8.6-10.8); Carbon Dioxide 18 mEq/L (19-29); Chloride 110 mEq/L (98-109); Globulin 3.6 g/dL (2.4-3.5); Glucose 97 mg/dL (70-99); Osmolality,Calculated 289 (280-300); Potassium 3.9 mEq/L (3.5-4.5); Sodium 139 mEq/L (136-145); Total Protein 6.4 g/dL (6.0-8.3); eGFR For African Americans > 60 (> 60); eGFR For Non-African Americans 57 (> 60)
[2016-05-20 04:54] LABS: Eosinophils # 0.3 K/mcL (0.0-0.6); Lymphocytes # 1.1 K/mcL (0.6-4.6); Monocytes # 0.5 K/mcL (0.0-1.3); Neutrophils # 10.9 K/mcL (1.6-8.9)
[2016-05-20 04:55] LABS: Platelet Estimate Normal (Normal)
--- NOTE | 2016-05-20 09:04 | Internal Med Progress Note ---
<Cindy Armenta - Last Filed: 05/20/16 11:51> Date of Encounter: 05/20/16 Time of Encounter: 08:30 - Assessment and plan (1) Hypercalcemia of malignancy Current Visit: Yes Status: Acute Assessment and plan: - Ca 17.5 on initial presentation. - Chest CT found new lytic lesions throughout the thoracic axial and appendicular skeleton, concerning of multiple myeloma. - S/p CT-guided core biopsy of left iliac bone. 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 - CT A/P with IV & oral contrast on 05/17 found asymmetric soft tissue thickening of the ascending colon suspicious for malignancy. - EGD and colonoscopy on 05/20 found medium-sized hiatal hernia and internal hemorrhoids but normal mucosa in the entire examined colon. - Serum Ca normalized with Ca 9.7 today. - Appreciate oncology recommendation & management. - Continue to monitor. (2) ANN-MARIE (acute kidney injury) Current Visit: Yes Status: Acute Assessment and plan: - SCr 3.42 on initial presentation. - Likely secondary to dehydration. - Continues to improve with SCr 1.26 today. - Encourage PO hydration - Continue to monitor (3) Acute bronchitis Current Visit: Yes Status: Acute Assessment and plan: - Respiratory status improved. - Continue Duonebs, albuterol. - Discontinue Levaquin. Qualifiers: Bronchitis organism: unspecified organism Qualified Code(s): J20.9 - Acute bronchitis, unspecified (4) Altered mental status Current Visit: Yes Status: Resolved Assessment and plan: - Likely secondary to hypercalcemia on initial presentation. - Resolved as patient is more alert & oriented and able to make jokes with his family at bedside. Qualifiers: Altered mental status type: unspecified Qualified Code(s): R41.82 - Altered mental status, unspecified (5) DVT prophylaxis Current Visit: Yes Status: Acute Assessment and plan: - Subcutaneous heparin. - Subjective Interval history: No significant event noted overnight. Patient was seen and examined this morning. Patient reports finishing his bowel prep overnight and has no other complaint. He denies abdominal pain, chest pain, dyspnea, nausea, vomiting. - Constitutional Vitals: Temp Pulse Resp BP Pulse Ox 98.7 F 92 16 119/73 95 05/20/16 06:44 05/20/16 06:44 05/20/16 06:44 05/20/16 06:44 05/20/16 06:44 General appearance: Present: cooperative, A&O X 3, pleasant, no acute distress, answers questions appropriately - Head Head exam: Present: atraumatic, normocephalic - Eye Eye exam: Present: PERRL, conjuntiva pink, sclera anicteric Pupils: Present: PERRL - Neck Neck exam general surgery: Present: supple, trachea midline. Absent: lymphadenopathy - Respiratory Respiratory exam: Present: CTAB. Absent: accessory muscle use, rales, rhonchi, wheezes - Cardiovascular Cardiovascular exam: Present: RRR, +S1, +S2. Absent: diastolic murmur, gallop, rubs, systolic murmur - GI/Abdominal GI/Abdominal exam: Present: normal bowel sounds, soft, no peritoneal signs. Absent: distended, tenderness - Extremities Exam Extremities exam: Present: warm, radial pulses palpable and symetrical. Absent : calf tenderness, cyanotic, pedal edema - Neurological Exam Neurological exam: Present: CN II-XII intact, oriented X3, no focal deficits. Absent: pronater drift, facial droop, speech deficit - Skin Skin exam: Present: dry, intact Additional comments: No abnormal moles or skin lesions noted. Internal Medicine: Result - Labs CBC & Chem 7: 05/20/16 04:00 05/20/16 04:00 Labs: Short CBC 05/19/16 05/20/16 Range/Units 06:40 04:00 WBC 13.6 H (4.3-11.1) K/mcL Hgb 11.7 L (12.9-16.9) g/dL Hct 36.0 L (37.5-50.1) % Plt Count 189 (140-400) K/mcL Neutrophils # 8.1 10.9 H (1.6-8.9) K/mcL BMP 05/20/16 04:00 Sodium 139 Potassium 3.9 Chloride 110 H Carbon Dioxide 18 L BUN 15 Creatinine 1.26 H Glucose 97 Calcium 9.7 Liver Function 05/20/16 Range/Units 04:00 Total Bilirubin 0.9 (0.2-1.2) mg/dL AST 161 H (5-34) Units/L ALT 149 H (0-55) Units/L Alkaline Phosphatase 542 H (38-126) Units/L Albumin 2.8 L (3.5-5.0) g/dL - ABG Interpretation ABG results: ABG ABG pH 7.43 pH Units (7.32-7.45) 05/13/16 17:45 ABG pCO2 42 mmHg (35-45) 05/13/16 17:45 ABG pO2 72 mmHg (85-104) L 05/13/16 17:45 ABG O2 Saturation 95 % (95-98) 05/13/16 17:45 PT/INR, D-dimer PT 13.1 Seconds (9.4-12.1) H 05/20/16 04:00 Consult Discharge Plan - Plan [facility]errals: [facility]Primary Care Provider[facility] - <Ronaldo West P - Last Filed: 05/20/16 16:04> Date of Encounter: 05/20/16 - Assessment and plan (1) Hypercalcemia of malignancy Current Visit: Yes Status: Acute (2) Altered mental status Current Visit: Yes Status: Resolved Qualifiers: Altered mental status type: unspecified Qualified Code(s): R41.82 - Altered mental status, unspecified (3) ANN-MARIE (acute kidney injury) Current Visit: Yes Status: Acute (4) DVT prophylaxis Current Visit: Yes Status: Acute - Constitutional Vitals: Temp Pulse Resp BP Pulse Ox 99.0 F 97 16 129/83 93 05/20/16 15:16 05/20/16 15:16 05/20/16 15:16 05/20/16 15:16 05/20/16 15:16 Internal Medicine: Result - Labs CBC & Chem 7: 05/20/16 04:00 05/20/16 04:00 Labs: Short CBC 05/20/16 Range/Units 04:00 WBC 13.6 H (4.3-11.1) K/mcL Hgb 11.7 L (12.9-16.9) g/dL Hct 36.0 L (37.5-50.1) % Plt Count 189 (140-400) K/mcL Neutrophils # 10.9 H (1.6-8.9) K/mcL BMP 05/20/16 04:00 Sodium 139 Potassium 3.9 Chloride 110 H Carbon Dioxide 18 L BUN 15 Creatinine 1.26 H Glucose 97 Calcium 9.7 Liver Function 05/20/16 Range/Units 04:00 Total Bilirubin 0.9 (0.2-1.2) mg/dL AST 161 H (5-34) Units/L ALT 149 H (0-55) Units/L Alkaline Phosphatase 542 H (38-126) Units/L Albumin 2.8 L (3.5-5.0) g/dL - ABG Interpretation ABG results: ABG ABG pH 7.43 pH Units (7.32-7.45) 05/13/16 17:45 ABG pCO2 42 mmHg (35-45) 05/13/16 17:45 ABG pO2 72 mmHg (85-104) L 05/13/16 17:45 ABG O2 Saturation 95 % (95-98) 05/13/16 17:45 PT/INR, D-dimer PT 13.1 Seconds (9.4-12.1) H 05/20/16 04:00 - Attending Attestation I examined this patient and my medical decision-making was reviewed with the TRANSFORMER SHOP SUPERVISOR/PA/Advanced Practice Nurse/Resident Physician. I agree with the documented findings, disposition and treatment plan as described except to the extent set forth below. Admitted for hypercalcemia. Multiple lytic lesions. Bone biopsy shows metastatic small cell. EGD/colonoscopy: Unremarkable Oncology on the board and we will follow the recommendation
[2016-05-20] MEDS ORDERED: *HR* FentaNYL (PF) 100 MCG/2 ML VIAL ONE (09:17)
[2016-05-20] MEDS ORDERED: *HR* Midazolam HCl 5 MG/5 ML VIAL IVP ONE (09:17)
[2016-05-20] MEDS ORDERED: Tetracaine/Benzocaine/Butamben 200MG/SPRAY (100SPY/BOT) MM ONE (09:24)
[2016-05-20] MEDS ORDERED: Simethicone 40 MG/0.6 ML MLS IR ONE (09:24)
[2016-05-20] MEDS: *HR* FentaNYL (PF) 100 MCG/2 ML VIAL IVP PRN ×3 (09:29→09:37)
[2016-05-20] MEDS: *HR* Midazolam HCl 5 MG/5 ML VIAL IVP PRN ×3 (09:29→09:37)
--- NOTE | 2016-05-20 09:53 | Pre-Sedation Evaluation ---
Pre-sedation evaluation - Pre-sedation checklist Date of procedure: 05/20/16 Recent Vitals: Last Vital Signs Temp 98.7 F 05/20/16 06:44 Pulse 85 05/20/16 09:45 Resp 18 05/20/16 09:45 BP 107/66 05/20/16 09:45 Pulse Ox 98 05/20/16 09:45 ASA Classification *see protocol: CLASS III-Severe systemic disease
[2016-05-20] MEDS: Sennosides 8.6 MG TABLET PO SCH ×2 (10:37→20:51)
[2016-05-20] MEDS: Aspirin 81 MG TAB.CHEW PO SCH (10:37)
[2016-05-20] MEDS: Megestrol Acetate 400 MG/10 ML UDC PO SCH (10:37)
--- NOTE | 2016-05-20 10:39 | Gastroenterology Consult Note ---
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 Patient also has some difficulty of on swallowing solids but does have a history of throat cancer with status post radiation. Recommendation: EGD to evaluate the esophagus and colon to evaluate the ascending colon. Procedure risks including risks were discussed with the patient (2) Abnormal CT scan, colon Current Visit: Yes Status: Acute - Time Spent With Patient Total time spent is greater than 50% in coordination of care (as documented) at patient's floor/unit and/or counseling patient: GI History of Present Illness - Data of Consult Consult date: 05/20/16 Requesting Physician: Ronaldo West MD - Consult Narrative Reason for consult: Abnormal imaging of the ascending colon History of present illness: Mr. Trevino is a 65 year old male We newly diagnosed metastatic small cell cancer was probably a pulmonary origin. During hospitalization patient was found to have a abnormal imaging of the ascending colon suspicious for malignancy. Patient had colonoscopy done in [place] last December. Denies any abdominal pain no changes bowel habits no blood in his stool. Because is a history of throat cancer" he has sometime difficulty swallowing solid. Past Med Surg Social Fam HX - Past Medical History Medical history: COPD, GERD, other Psychiatric history: no psych history - Past Surgical History Surgical History: other (Back surgery, egd) - Social History Smoking Status: Former smoker Smokeless Tobacco Status: No Alcohol use: none Drug use: none - Family History Mother Age at : 73 Hx Family Neuromuscular Disorders: Yes Father Hx Family Cardiac Disorders: Yes Hx Family Respiratory Disorders: Yes Review of Systems: GI: as per [facility] GENERAL: denies fever, has some chills EYES: denies yellow discoloration ENT: Does has dry mouth and has to drink water all the time because of radiation therapy for throat cancer. Does admit of trouble swallowing sometimes especially solid CARDIO: denies chest pain, palpitations RESP: has shortness of breath : denies change in color of urine NEURO: denies any weakness HEME: Denies any bruising MS: Does have some aches and pains in her joints but the not new DERM: denies rash or itching PSYCH: denies history of: depression or anxiety - Constitutional Vitals: Temp Pulse Resp BP Pulse Ox 98.7 F 85 85 107/66 92 05/20/16 06:44 05/20/16 09:50 05/20/16 09:50 05/20/16 09:50 05/20/16 09:50 - Head Head exam: Present: atraumatic, normocephalic - Eye Eye exam: Present: sclera anicteric - Neck Neck exam general surgery: Present: supple - Respiratory Additional comments: Bilateral good air entry - Cardiovascular Cardiovascular exam: Present: +S1, +S2 Additional comments: Rhythm is regular - GI/Abdominal Additional comments: Soft old scar of previous laparoscopic surgery of the esophagus. Some bruising of abdominal wall - Extremities Exam Extremities exam: Present: normal inspection, warm - Skin Skin exam: Present: dry, warm Results - Labs CBC & Chem 7: 05/20/16 04:00 05/20/16 04:00 Labs: Last Result Calcium 9.7 mg/dL (8.6-10.8) 05/20/16 04:00 Troponin I 0.02 ng/mL (0-0.03) 05/11/16 00:55 Entire Visit Hgb 11.7 g/dL (12.9-16.9) L 05/20/16 04:00 Hct 36.0 % (37.5-50.1) L 05/20/16 04:00 PT 13.1 Seconds (9.4-12.1) H 05/20/16 04:00 Total Bilirubin 0.9 mg/dL (0.2-1.2) 05/20/16 04:00 AST 161 Units/L (5-34) H 05/20/16 04:00 ALT 149 Units/L (0-55) H 05/20/16 04:00 Ammonia 28 mcmol/L (18-72) 05/13/16 15:11 - ABG ABG results: ABG ABG pH 7.43 pH Units (7.32-7.45) 05/13/16 17:45 ABG pCO2 42 mmHg (35-45) 05/13/16 17:45 ABG pO2 72 mmHg (85-104) L 05/13/16 17:45 ABG O2 Saturation 95 % (95-98) 05/13/16 17:45 PT/INR, D-dimer PT 13.1 Seconds (9.4-12.1) H 05/20/16 04:00 Consult Discharge Plan - Plan [facility]errals: [facility] [Primary Care Provider] -
[2016-05-20] MEDS: Gabapentin 100 MG CAPSULE PO SCH (20:51)
[2016-05-20] MEDS: diazePAM 10 MG TABLET PO PRN (20:55)
[2016-05-21 03:57] LABS: Eosinophils # 0.2 K/mcL (0.0-0.6); Hemoglobin 12.3 g/dL (12.9-16.9); Mean Corpuscular HGB Conc 32.4 g/dL (31.6-35.5); Mean Corpuscular Hemoglobin 26.7 pg (28.0-33.3); Mean Corpuscular Volume 82.6 fL (83.0-100.0); Mean Platelet Volume 10.6 fL (9.4-12.4); Nucleated Red Blood Cells 0.3 /100 WBC (0); Platelet Count 199 K/mcL (140-400); Red Cell Distribution Width 14.6 % (11.5-14.5)
[2016-05-21 04:17] LABS: BUN/Creatinine Ratio 12 (6-26); Blood Urea Nitrogen 16 mg/dL (8-26); Calcium 10.3 mg/dL (8.6-10.8); Carbon Dioxide 18 mEq/L (19-29); Chloride 108 mEq/L (98-109); Glucose 99 mg/dL (70-99); Osmolality,Calculated 285 (280-300); Potassium 3.9 mEq/L (3.5-4.5); Sodium 137 mEq/L (136-145); eGFR For African Americans > 60 (> 60); eGFR For Non-African Americans 54 (> 60)
[2016-05-21] MEDS: Ipratropium/Albuterol Neb 3 ML IH SCH ×4 (04:49→22:24)
[2016-05-21] MEDS: *HR* Heparin 5,000 UNIT/ML VIAL SQ SCH ×2 (05:13→16:55)
[2016-05-21] MEDS: *HR* HYDROcodone/Acet 10/325 mg TABLET PO PRN ×2 (05:15→15:08)
[2016-05-21 05:43] LABS: Large Platelets Present (Not Present); Lymphocytes # 1.3 K/mcL (0.6-4.6); Monocytes # 0.9 K/mcL (0.0-1.3); Neutrophils # 8.5 K/mcL (1.6-8.9); Platelet Estimate Normal (Normal); Reactive Lymphocytes Present (Not Present)
[2016-05-21] MEDS: Sennosides 8.6 MG TABLET PO SCH ×2 (08:43→20:49)
[2016-05-21] MEDS: Megestrol Acetate 400 MG/10 ML UDC PO SCH (08:43)
[2016-05-21] MEDS: Aspirin 81 MG TAB.CHEW PO SCH (08:43)
--- NOTE | 2016-05-21 15:41 | Internal Med Progress Note ---
Date of Encounter: 05/21/16 Time of Encounter: 15:40 - Assessment and plan (1) Hypercalcemia of malignancy Current Visit: Yes Status: Acute Assessment and plan: - Ca 17.5 on initial presentation. - Chest CT found new lytic lesions throughout the thoracic axial and appendicular skeleton, concerning of multiple myeloma. - S/p CT-guided core biopsy of left iliac bone. 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 - CT A/P with IV & oral contrast on 05/17 found asymmetric soft tissue thickening of the ascending colon suspicious for malignancy. - EGD and colonoscopy on 05/20 found medium-sized hiatal hernia and internal hemorrhoids but normal mucosa in the entire examined colon. - Serum Ca normalized with Ca 9.7 today. - Appreciate oncology recommendation & management. - Continue to monitor. (2) Altered mental status Current Visit: Yes Status: Resolved Assessment and plan: - Likely secondary to hypercalcemia on initial presentation. - Resolved as patient is more alert & oriented and able to make jokes with his family at bedside. Qualifiers: Altered mental status type: unspecified Qualified Code(s): R41.82 - Altered mental status, unspecified (3) ANN-MARIE (acute kidney injury) Current Visit: Yes Status: Acute Assessment and plan: - SCr 3.42 on initial presentation. - Likely secondary to dehydration. - Continues to improve with SCr 1.26 today. - Encourage PO hydration - Continue to monitor (4) DVT prophylaxis Current Visit: Yes Status: Acute Assessment and plan: - Subcutaneous heparin. - Subjective Interval history: seen and examined. no new complaints. Family at bedside. Answered all questions. - Constitutional Vitals: Temp Pulse Resp BP Pulse Ox 97.7 F 101 16 104/74 94 05/21/16 15:31 05/21/16 15:31 05/21/16 15:31 05/21/16 15:31 05/21/16 15:31 General appearance: Present: cooperative, A&O X 3, pleasant, no acute distress, answers questions appropriately - Head Head exam: Present: atraumatic, normocephalic - Eye Eye exam: Present: PERRL, conjuntiva pink, sclera anicteric Pupils: Present: PERRL - Neck Neck exam general surgery: Present: supple, trachea midline. Absent: lymphadenopathy - Respiratory Respiratory exam: Present: CTAB. Absent: accessory muscle use, rales, rhonchi, wheezes - Cardiovascular Cardiovascular exam: Present: RRR, +S1, +S2. Absent: diastolic murmur, gallop, rubs, systolic murmur - GI/Abdominal GI/Abdominal exam: Present: normal bowel sounds, soft, no peritoneal signs. Absent: distended, tenderness - Extremities Exam Extremities exam: Present: warm, radial pulses palpable and symetrical. Absent : calf tenderness, cyanotic, pedal edema - Neurological Exam Neurological exam: Present: CN II-XII intact, oriented X3, no focal deficits. Absent: pronater drift, facial droop, speech deficit - Skin Skin exam: Present: dry, intact Internal Medicine: Result - Labs CBC & Chem 7: 05/21/16 03:35 05/21/16 03:35 Labs: Short CBC 05/21/16 Range/Units 03:35 WBC 10.9 (4.3-11.1) K/mcL Hgb 12.3 L (12.9-16.9) g/dL Hct 38.0 (37.5-50.1) % Plt Count 199 (140-400) K/mcL Neutrophils # 8.5 (1.6-8.9) K/mcL BMP 05/21/16 03:35 Sodium 137 Potassium 3.9 Chloride 108 Carbon Dioxide 18 L BUN 16 Creatinine 1.33 H Glucose 99 Calcium 10.3 - ABG Interpretation ABG results: ABG ABG pH 7.43 pH Units (7.32-7.45) 05/13/16 17:45 ABG pCO2 42 mmHg (35-45) 05/13/16 17:45 ABG pO2 72 mmHg (85-104) L 05/13/16 17:45 ABG O2 Saturation 95 % (95-98) 05/13/16 17:45 PT/INR, D-dimer PT 13.1 Seconds (9.4-12.1) H 05/20/16 04:00 Consult Discharge Plan - Plan Referrals: Crys Givens MD [Partnered Physician] - 06/08/16 11:40 am [facility] Care Provider[facility] -
--- NOTE | 2016-05-21 16:59 | Oncology Inp Progress Note ---
<Tara Hooks E - Last Filed: 05/21/16 17:27> Date of Encounter: 05/21/16 Time of Encounter: 13:20 (1) Lytic bone lesions on xray Current Visit: Yes Status: Acute Assessment and plan: consult IR regarding bone biopsy. (2) Hypercalcemia of malignancy Current Visit: Yes Status: Acute Assessment and plan: Calcium 12.2- continue current treatment. Oncology: Subj Interval history: Patient seen and examined at bedside. Patient is anxious to get started on chemotherapy. He states his shortness of breath is about the same. He has O2 on continuously. He denies any new problems concerned this time. We like to start chemotherapy tomorrow with carboplatin day 1 and FIELD RADIO TECHNICIAN-16 day 1 through 3. The cycle repeats and 21 days. With small cell lung cancer patients are at risk to develop tumor lysis syndrome we may consider giving allopurinol. Patient's family was very concerned about medications to be given at home to control nausea and vomiting. We will ask the venetian blind cleaner and repairer to see the patient tomorrow to further discuss side effects associated with these chemotherapy agents and to give them prescriptions for supportive meds. Will order MRI of liver to further evaluate liver mass. - Constitutional Vitals: Vital Signs Temp Pulse Resp BP Pulse Ox 05/21/16 15:31 97.7 F 101 16 104/74 94 05/21/16 13:50 98.0 F 90 20 95/82 94 05/21/16 10:37 98.1 F 93 18 103/56 93 05/21/16 08:00 93 05/21/16 06:57 98.4 F 86 16 116/63 93 05/21/16 03:00 98.5 F 78 17 111/64 94 05/20/16 19:00 98.5 F 109 20 131/82 Intake and Output 05/21/16 05/21/16 05/21/16 07:59 15:59 23:59 Intake Total 200 / 200 Output Total 0 / 0 Balance 200 / 200 Intake: Oral 200 / 200 Output: Urine 0 / 0 Other: Weight 84.6 kg Patient Weight 05/21/16 23:59 Weight 84.6 kg General appearance: cooperative, no acute distress - Head Head exam: Present: normal inspection, normocephalic - Eye Eye exam: Present: normal appearance, sclera anicteric - Neck Additional comments: No lymphadenopathy - Respiratory Respiratory exam: Present: decreased breath sounds (bilateral bases), CTAB - Cardiovascular Cardiovascular exam: Present: RRR - GI/Abdominal GI/Abdominal exam: Present: normal bowel sounds, soft - Extremities Exam Extremities exam: Present: normal capillary refill, normal inspection - Back Exam Back exam: Present: normal inspection - Psychiatric Psychiatric exam: Present: normal affect, normal mood Oncology: Obj Data - Labs CBC & Chem 7: 05/21/16 03:35 05/21/16 03:35 Labs: Laboratory Results - last 24 hr 05/21/16 05/21/16 03:35 03:35 WBC 10.9 RBC 4.60 Hgb 12.3 L Hct 38.0 MCV 82.6 L MCH 26.7 L MCHC 32.4 RDW 14.6 H Plt Count 199 MPV 10.6 Seg Neutrophils % 72.0 Band Neutrophils % 6.0 H Lymphocytes % 12.0 Monocytes % 8.0 Eosinophils % 2.0 Neutrophils # 8.5 Lymphocytes # 1.3 Monocytes # 0.9 Eosinophils # 0.2 Nucleated RBCs/100 WBC 0.3 H Reactive Lymphocytes Present A Platelet Estimate Normal Large Platelets Present A Sodium 137 Potassium 3.9 Chloride 108 Carbon Dioxide 18 L BUN 16 Creatinine 1.33 H Est GFR ( Amer) > 60 Est GFR (Non-Af Amer) 54 L BUN/Creatinine Ratio 12 Glucose 99 Calculated Osmolality 285 Calcium 10.3 - ABG Interpretation ABG results: ABG ABG pH 7.43 pH Units (7.32-7.45) 05/13/16 17:45 ABG pCO2 42 mmHg (35-45) 05/13/16 17:45 ABG pO2 72 mmHg (85-104) L 05/13/16 17:45 ABG O2 Saturation 95 % (95-98) 05/13/16 17:45 PT/INR, D-dimer PT 13.1 Seconds (9.4-12.1) H 05/20/16 04:00 Consult Discharge Plan - Plan Referrals: Crys Givens MD [Partnered Physician] - 06/08/16 11:40 am [place],PCP [Primary Care Provider] - 05/31/16 2:15 pm Prescriptions: Prochlorperazine Maleate [Compazine] 10 mg PO Q6HR PRN #40 tablet PRN Reason: nausea/vomiting Magic Mouthwash 10 ml PO Q4H PRN #240 ml PRN Reason: mucositis,stomatitis Omeprazole [PriLOSEC] 20 mg PO DAILY #30 capsule. Ondansetron HCl [Zofran] 4 mg PO Q6H PRN #40 tablet PRN Reason: nausea/vomiting <DeepakGeorginaAnahi S - Last Filed: 05/22/16 19:36> Date of Encounter: 05/22/16 (1) Small cell lung cancer Current Visit: Yes Status: Acute Qualifiers: Qualified Code(s): C34.90 - Malignant neoplasm of unspecified part of unspecified bronchus or lung - Constitutional Vitals: Vital Signs Temp Pulse Resp BP Pulse Ox 05/22/16 15:25 98.2 F 79 14 125/69 93 05/22/16 10:28 98.1 F 97 15 108/66 93 05/22/16 08:00 93 05/22/16 06:29 98.6 F 80 14 108/69 93 05/22/16 04:00 98.1 F 78 18 119/62 93 05/21/16 21:00 92 Intake and Output 05/22/16 05/22/16 05/22/16 07:59 15:59 23:59 Intake Total 360 / 360 240 / 240 Balance 360 / 360 240 / 240 Intake: Oral 360 / 360 240 / 240 Other: Meal Lunch Percent of Meal Consumed 0% Weight 84.5 kg Patient Weight 05/22/16 23:59 Weight 84.5 kg Oncology: Obj Data - Labs CBC & Chem 7: 05/22/16 13:52 05/22/16 13:52 Labs: Laboratory Results - last 24 hr 05/22/16 05/22/16 05/22/16 13:52 13:52 13:52 WBC 9.2 RBC 4.07 L Hgb 11.0 L Hct 32.9 L MCV 80.8 L MCH 27.0 L MCHC 33.4 RDW 14.6 H Plt Count 174 MPV 11.0 Seg Neutrophils % 72.0 Band Neutrophils % 6.0 H Lymphocytes % 10.0 Monocytes % 8.0 Eosinophils % 2.0 Metamyelocytes % 1.0 H Myelocytes % 1.0 H Neutrophils # 7.2 Lymphocytes # 0.9 Monocytes # 0.7 Eosinophils # 0.2 Nucleated RBCs/100 WBC 0.3 H Platelet Estimate Normal Sodium 137 Potassium 3.8 Chloride 108 Carbon Dioxide 22 BUN 15 Creatinine 1.24 Est GFR ( Amer) > 60 Est GFR (Non-Af Amer) 58 L BUN/Creatinine Ratio 12 Glucose 90 Calculated Osmolality 284 Calcium 10.0 Magnesium 1.9 Total Bilirubin 0.8 AST 154 H ALT 138 H Alkaline Phosphatase 626 H Serum Total Protein 6.3 Albumin 2.7 L Globulin 3.6 H Albumin/Globulin Ratio 0.8 L - ABG Interpretation ABG results: ABG ABG pH 7.43 pH Units (7.32-7.45) 05/13/16 17:45 ABG pCO2 42 mmHg (35-45) 05/13/16 17:45 ABG pO2 72 mmHg (85-104) L 05/13/16 17:45 ABG O2 Saturation 95 % (95-98) 05/13/16 17:45 PT/INR, D-dimer PT 13.1 Seconds (9.4-12.1) H 05/20/16 04:00 - Attending Attestation I examined this patient and my medical decision-making was reviewed with the Advanced Practice Nurse. I agree with the documented findings, disposition and treatment plan as described except to the extent set forth below. Metastatic small cell lung cancer. Small cell cancer is usually aggressive. Chemotherapy offers good palliation and disease control but there is high chance of recurrence. He has some contraindication for MRI brain. May consider CT head without contrast. This may be inferior and resolving any minute metastasis Start allopurinol for tumor lysis prophylaxis Carboplatin AUC 5 day one and etoposide 60 mg/m day one and 2. Cycle will be repeated every 3 weeks From cycle 2 may increase etoposide to 3 days Neulasta support if he developed neutropenia Complications of chemotherapy discussed including nausea vomiting. Neutropenia and pancytopenia and neutropenic precautions given. Also advised about fatigue
[2016-05-21] MEDS: diazePAM 10 MG TABLET PO PRN (20:48)
[2016-05-21] MEDS: Gabapentin 100 MG CAPSULE PO SCH (20:48)
[2016-05-22] MEDS ORDERED: Famotidine 20 MG/2 ML VIAL IV PRN
[2016-05-22] MEDS ORDERED: Prochlorperazine 10 MG/2 ML VIAL IV PRN
[2016-05-22] MEDS ORDERED: Dexamethasone 10 MG/ML VIAL IV PRN
[2016-05-22] MEDS ORDERED: *HR* LORazepam 2 MG/ML VIAL IV PRN
[2016-05-22] MEDS: Ipratropium/Albuterol Neb 3 ML IH SCH ×4 (03:30→22:52)
[2016-05-22] MEDS: *HR* HYDROcodone/Acet 10/325 mg TABLET PO PRN ×4 (04:29→20:42)
[2016-05-22] MEDS: *HR* Heparin 5,000 UNIT/ML VIAL SQ SCH ×2 (05:16→17:28)
[2016-05-22] MEDS: Megestrol Acetate 400 MG/10 ML UDC PO SCH (09:09)
[2016-05-22] MEDS: Sennosides 8.6 MG TABLET PO SCH ×2 (09:09→20:01)
[2016-05-22] MEDS: Aspirin 81 MG TAB.CHEW PO SCH (09:10)
[2016-05-22 14:07] LABS: Hematocrit 32.9 % (37.5-50.1); Mean Corpuscular HGB Conc 33.4 g/dL (31.6-35.5); Mean Corpuscular Volume 80.8 fL (83.0-100.0); Monocytes # 0.7 K/mcL (0.0-1.3); Nucleated Red Blood Cells 0.3 /100 WBC (0); Platelet Count 174 K/mcL (140-400); Red Blood Count 4.07 M/mcL (4.19-5.50); Red Cell Distribution Width 14.6 % (11.5-14.5)
[2016-05-22 14:19] LABS: Alanine Aminotransferase 138 Units/L (0-55); Albumin 2.7 g/dL (3.5-5.0); Albumin/Globulin Ratio 0.8 (1.1-2.2); Alkaline Phosphatase 626 Units/L (38-126); Aspartate Amino Transferase 154 Units/L (5-34); BUN/Creatinine Ratio 12 (6-26); Bilirubin,Total 0.8 mg/dL (0.2-1.2); Blood Urea Nitrogen 15 mg/dL (8-26); Carbon Dioxide 22 mEq/L (19-29); Chloride 108 mEq/L (98-109); Globulin 3.6 g/dL (2.4-3.5); Glucose 90 mg/dL (70-99); Osmolality,Calculated 284 (280-300); Potassium 3.8 mEq/L (3.5-4.5); Sodium 137 mEq/L (136-145); Total Protein 6.3 g/dL (6.0-8.3); eGFR For African Americans > 60 (> 60); eGFR For Non-African Americans 58 (> 60)
[2016-05-22 14:29] LABS: Eosinophils # 0.2 K/mcL (0.0-0.6); Lymphocytes # 0.9 K/mcL (0.6-4.6); Neutrophils # 7.2 K/mcL (1.6-8.9); Platelet Estimate Normal (Normal)
[2016-05-22] MEDS ORDERED: CARBOPLATIN IV SCH ×2 (14:30)
[2016-05-22] MEDS ORDERED: SODIUM CHLORIDE 0.9% IV SCH ×4 (14:30)
[2016-05-22] MEDS ORDERED: Dexamethasone 10 MG/ML VIAL IV ONE (14:30)
[2016-05-22] MEDS ORDERED: ETOPOSIDE IV SCH ×2 (14:30)
[2016-05-22] MEDS: 0.9 % Sodium Chloride 500 ML IVC SCH (15:22)
--- NOTE | 2016-05-22 17:33 | Internal Med Progress Note ---
Date of Encounter: 05/22/16 Time of Encounter: 17:31 - Assessment and plan (1) Hypercalcemia of malignancy Current Visit: Yes Status: Acute Assessment and plan: - Ca 17.5 on initial presentation. - Chest CT found new lytic lesions throughout the thoracic axial and appendicular skeleton, concerning of multiple myeloma. - S/p CT-guided core biopsy of left iliac bone. 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 - CT A/P with IV & oral contrast on 05/17 found asymmetric soft tissue thickening of the ascending colon suspicious for malignancy. - EGD and colonoscopy on 05/20 found medium-sized hiatal hernia and internal hemorrhoids but normal mucosa in the entire examined colon. - Serum Ca normalized with Ca 9.7 today. - Appreciate oncology recommendation & management. - Continue to monitor. 05/22/2016 oncology to start first dose of chemotherapy today patient is clinically stable and does not have any complaints. (2) Altered mental status Current Visit: Yes Status: Resolved Assessment and plan: - Likely secondary to hypercalcemia on initial presentation. - Resolved as patient is more alert & oriented and able to make jokes with his family at bedside. Qualifiers: Altered mental status type: unspecified Qualified Code(s): R41.82 - Altered mental status, unspecified (3) ANN-MARIE (acute kidney injury) Current Visit: Yes Status: Acute Assessment and plan: - SCr 3.42 on initial presentation. - Likely secondary to dehydration. - Continues to improve with SCr 1.26 today. - Encourage PO hydration - Continue to monitor (4) DVT prophylaxis Current Visit: Yes Status: Acute Assessment and plan: - Subcutaneous heparin. - Subjective Interval history: seen and examined. no new complaints. Family at bedside. Answered all questions. 05/22/2016 Patient seen and examined. Chart reviewed. Patient denies any new complaints. Oncology is going to start first dose of chemotherapy today. - Constitutional Vitals: Temp Pulse Resp BP Pulse Ox 98.2 F 79 14 125/69 93 05/22/16 15:25 05/22/16 15:25 05/22/16 15:25 05/22/16 15:25 05/22/16 15:25 General appearance: Present: cooperative, A&O X 3, pleasant, no acute distress, answers questions appropriately - Head Head exam: Present: atraumatic, normocephalic - Eye Eye exam: Present: PERRL, conjuntiva pink, sclera anicteric Pupils: Present: PERRL - Neck Neck exam general surgery: Present: supple, trachea midline. Absent: lymphadenopathy - Respiratory Respiratory exam: Present: CTAB. Absent: accessory muscle use, rales, rhonchi, wheezes - Cardiovascular Cardiovascular exam: Present: RRR, +S1, +S2. Absent: diastolic murmur, gallop, rubs, systolic murmur - GI/Abdominal GI/Abdominal exam: Present: normal bowel sounds, soft, no peritoneal signs. Absent: distended, tenderness - Extremities Exam Extremities exam: Present: warm, radial pulses palpable and symetrical. Absent : calf tenderness, cyanotic, pedal edema - Neurological Exam Neurological exam: Present: CN II-XII intact, oriented X3, no focal deficits. Absent: pronater drift, facial droop, speech deficit - Skin Skin exam: Present: dry, intact Internal Medicine: Result - Labs CBC & Chem 7: 05/22/16 13:52 05/22/16 13:52 Labs: Short CBC 05/22/16 Range/Units 13:52 WBC 9.2 (4.3-11.1) K/mcL Hgb 11.0 L (12.9-16.9) g/dL Hct 32.9 L (37.5-50.1) % Plt Count 174 (140-400) K/mcL Neutrophils # 7.2 (1.6-8.9) K/mcL BMP 05/22/16 13:52 Sodium 137 Potassium 3.8 Chloride 108 Carbon Dioxide 22 BUN 15 Creatinine 1.24 Glucose 90 Calcium 10.0 Liver Function 05/22/16 Range/Units 13:52 Total Bilirubin 0.8 (0.2-1.2) mg/dL AST 154 H (5-34) Units/L ALT 138 H (0-55) Units/L Alkaline Phosphatase 626 H (38-126) Units/L Albumin 2.7 L (3.5-5.0) g/dL - ABG Interpretation ABG results: ABG ABG pH 7.43 pH Units (7.32-7.45) 05/13/16 17:45 ABG pCO2 42 mmHg (35-45) 05/13/16 17:45 ABG pO2 72 mmHg (85-104) L 05/13/16 17:45 ABG O2 Saturation 95 % (95-98) 05/13/16 17:45 PT/INR, D-dimer PT 13.1 Seconds (9.4-12.1) H 05/20/16 04:00 Consult Discharge Plan - Plan Referrals: Crys Givens MD [Partnered Physician] - 06/08/16 11:40 am [place],PCP [Primary Care Provider] - 05/31/16 2:15 pm Prescriptions: Prochlorperazine Maleate [Compazine] 10 mg PO Q6HR PRN #40 tablet PRN Reason: nausea/vomiting Magic Mouthwash 10 ml PO Q4H PRN #240 ml PRN Reason: mucositis,stomatitis Omeprazole [PriLOSEC] 20 mg PO DAILY #30 capsule. Ondansetron HCl [Zofran] 4 mg PO Q6H PRN #40 tablet PRN Reason: nausea/vomiting
--- NOTE | 2016-05-22 19:40 | Oncology Inp Progress Note ---
Date of Encounter: 05/23/16 Time of Encounter: 19:37 (1) Small cell lung cancer Current Visit: Yes Status: Acute Assessment and plan: Metastatic small cell lung cancer. CT of abdomen and pelvis without contrast 05/11/2016 showed multiple axial skeletal bone metastasis and also left iliac metastasis Possible liver lesion 4 mm nodule right lower lobe CT chest 05/12/2016 showed numerous nodules right upper lobe largest around 9 mm. Biopsy of the bone 05/15/2016 showed small cell carcinoma with positive TTF-1 and synaptophysin He presented with hypercalcemia which is not that common with small cell cancer. Current calcium 9 He received pamidronate 30 mg IV one dose. He also has possible lesion in the ascending colon and colonoscopy was completely negative other than internal hemorrhoids on 05/20/2016 Likely small cell carcinomas pulmonary origin give TTF positive. but extrapulmonary origin cannot be excluded Treatment is still the same. We will consider treatment with carboplatin and etoposide soon. If needed would consider allopurinol 200 mg by mouth at bedtime to minimize tumor lysis syndrome. Small cell cancer is usually aggressive. Chemotherapy offers good palliation and disease control but there is high chance of recurrence. He has some contraindication for MRI brain. May consider CT head without contrast. This may be inferior and resolving any minute metastasis Started allopurinol for tumor lysis prophylaxis Carboplatin AUC 5 day one and etoposide 60 mg/m day one and 2. Cycle will be repeated every 3 weeks He tolerated cycle one day one chemotherapy well From cycle 2 may increase etoposide to 3 days Neulasta support if he developes neutropenia Complications of chemotherapy discussed including nausea vomiting. Neutropenia and pancytopenia and neutropenic precautions given. Also advised about fatigue 2. History of prostate cancer. About 4 years ago treated with the radiation alone. PSA 0.55 05/11/2016 3. History of Head and neck cancer treated with a single modality radiation about 6 years ago. Currently no major evidence of recurrence Qualifiers: Qualified Code(s): C34.90 - Malignant neoplasm of unspecified part of unspecified bronchus or lung Oncology: Subj Interval history: Cycle 1 chemotherapy to start today. - Constitutional Vitals: Vital Signs Temp Pulse Resp BP Pulse Ox 05/22/16 15:25 98.2 F 79 14 125/69 93 05/22/16 10:28 98.1 F 97 15 108/66 93 05/22/16 08:00 93 05/22/16 06:29 98.6 F 80 14 108/69 93 05/22/16 04:00 98.1 F 78 18 119/62 93 05/21/16 21:00 92 Intake and Output 05/22/16 05/22/16 05/22/16 07:59 15:59 23:59 Intake Total 360 / 360 240 / 240 Balance 360 / 360 240 / 240 Intake: Oral 360 / 360 240 / 240 Other: Meal Lunch Percent of Meal Consumed 0% Weight 84.5 kg Patient Weight 05/22/16 23:59 Weight 84.5 kg Exam: GENERAL: Alert and oriented, well appearing. Mental Status: Affect appropriate for circumstances HEENT: Sclerae anicteric. No mucositis or thrush. No other oral or pharyngeal lesions or erythema. Skin: No rashes or petechiae. No evidence of skin malignancy Lymph nodes: No cervical, supraclavicular, axillary, or inguinal adenopathy. Lungs: Clear to auscultation and percussion bilaterally. Cardiovascular: Regular rate and rhythm. No gallops, murmurs, or rubs. Abdomen: Soft, nontender; no organomegaly or masses palpable. Extremities: No edema. No calf swelling or tenderness. No joint deformity. Neurologic: Alert, cranial nerves II-XII intact; normal gait; no focal weakness or sensory abnormalities. Oncology: Obj Data - Labs CBC & Chem 7: 05/22/16 13:52 05/22/16 13:52 Labs: Laboratory Results - last 24 hr 05/22/16 05/22/16 05/22/16 13:52 13:52 13:52 WBC 9.2 RBC 4.07 L Hgb 11.0 L Hct 32.9 L MCV 80.8 L MCH 27.0 L MCHC 33.4 RDW 14.6 H Plt Count 174 MPV 11.0 Seg Neutrophils % 72.0 Band Neutrophils % 6.0 H Lymphocytes % 10.0 Monocytes % 8.0 Eosinophils % 2.0 Metamyelocytes % 1.0 H Myelocytes % 1.0 H Neutrophils # 7.2 Lymphocytes # 0.9 Monocytes # 0.7 Eosinophils # 0.2 Nucleated RBCs/100 WBC 0.3 H Platelet Estimate Normal Sodium 137 Potassium 3.8 Chloride 108 Carbon Dioxide 22 BUN 15 Creatinine 1.24 Est GFR ( Amer) > 60 Est GFR (Non-Af Amer) 58 L BUN/Creatinine Ratio 12 Glucose 90 Calculated Osmolality 284 Calcium 10.0 Magnesium 1.9 Total Bilirubin 0.8 AST 154 H ALT 138 H Alkaline Phosphatase 626 H Serum Total Protein 6.3 Albumin 2.7 L Globulin 3.6 H Albumin/Globulin Ratio 0.8 L - ABG Interpretation ABG results: ABG ABG pH 7.43 pH Units (7.32-7.45) 05/13/16 17:45 ABG pCO2 42 mmHg (35-45) 05/13/16 17:45 ABG pO2 72 mmHg (85-104) L 05/13/16 17:45 ABG O2 Saturation 95 % (95-98) 05/13/16 17:45 PT/INR, D-dimer PT 13.1 Seconds (9.4-12.1) H 05/20/16 04:00 Consult Discharge Plan - Plan Referrals: Crys Givens MD [Partnered Physician] - 06/08/16 11:40 am [facility]PCP [Primary Care Provider] - 05/31/16 2:15 pm Prescriptions: Prochlorperazine Maleate [Compazine] 10 mg PO Q6HR PRN #40 tablet PRN Reason: nausea/vomiting Magic Mouthwash 10 ml PO Q4H PRN #240 ml PRN Reason: mucositis,stomatitis Omeprazole [PriLOSEC] 20 mg PO DAILY #30 capsule. Ondansetron HCl [Zofran] 4 mg PO Q6H PRN #40 tablet PRN Reason: nausea/vomiting
[2016-05-22] MEDS: Gabapentin 100 MG CAPSULE PO SCH (20:00)
[2016-05-22] MEDS: diazePAM 10 MG TABLET PO PRN (20:00)
[2016-05-23] MEDS ORDERED: SODIUM CHLORIDE 0.9% IV SCH
[2016-05-23] MEDS ORDERED: 0.9 % Sodium Chloride 500 ML IVC SCH
[2016-05-23] MEDS ORDERED: Famotidine 20 MG/2 ML VIAL IV PRN
[2016-05-23] MEDS ORDERED: Prochlorperazine 10 MG/2 ML VIAL IV PRN
[2016-05-23] MEDS ORDERED: *HR* LORazepam 2 MG/ML VIAL IV PRN
[2016-05-23] MEDS ORDERED: ETOPOSIDE IV SCH
[2016-05-23] MEDS ORDERED: Dexamethasone 10 MG/ML VIAL IV ONE
[2016-05-23] MEDS ORDERED: Dexamethasone 10 MG/ML VIAL IV PRN
[2016-05-23] MEDS: *HR* HYDROcodone/Acet 10/325 mg TABLET PO PRN ×5 (03:56→22:18)
[2016-05-23] MEDS: Ipratropium/Albuterol Neb 3 ML IH SCH ×4 (04:58→23:50)
[2016-05-23] MEDS: *HR* Heparin 5,000 UNIT/ML VIAL SQ SCH ×2 (06:58→17:30)
[2016-05-23] MEDS: Aspirin 81 MG TAB.CHEW PO SCH (08:34)
[2016-05-23] MEDS: Megestrol Acetate 400 MG/10 ML UDC PO SCH (08:35)
[2016-05-23] MEDS: Sennosides 8.6 MG TABLET PO SCH ×2 (08:35→20:43)
--- NOTE | 2016-05-23 14:02 | Internal Med Progress Note ---
Date of Encounter: 05/23/16 Time of Encounter: 14:00 - Assessment and plan (1) Hypercalcemia of malignancy Current Visit: Yes Status: Acute Assessment and plan: - Ca 17.5 on initial presentation. - Chest CT found new lytic lesions throughout the thoracic axial and appendicular skeleton, concerning of multiple myeloma. - S/p CT-guided core biopsy of left iliac bone. 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 - CT A/P with IV & oral contrast on 05/17 found asymmetric soft tissue thickening of the ascending colon suspicious for malignancy. - EGD and colonoscopy on 05/20 found medium-sized hiatal hernia and internal hemorrhoids but normal mucosa in the entire examined colon. - Serum Ca normalized with Ca 9.7 today. - Appreciate oncology recommendation & management. - Continue to monitor. 05/22/2016 oncology to start first dose of chemotherapy today patient is clinically stable and does not have any complaints. 05/23/2016 Chemotherapy cycle 1, day 1: No complications, no issues. We will wait for oncology to review. Possible home in next 1-2 days. (2) Altered mental status Current Visit: Yes Status: Resolved Assessment and plan: - Likely secondary to hypercalcemia on initial presentation. - Resolved as patient is more alert & oriented and able to make jokes with his family at bedside. Qualifiers: Altered mental status type: unspecified Qualified Code(s): R41.82 - Altered mental status, unspecified (3) ANN-MARIE (acute kidney injury) Current Visit: Yes Status: Acute Assessment and plan: - SCr 3.42 on initial presentation. - Likely secondary to dehydration. - Continues to improve with SCr 1.26 today. - Encourage PO hydration - Continue to monitor (4) DVT prophylaxis Current Visit: Yes Status: Acute Assessment and plan: - Subcutaneous heparin. - Subjective Interval history: seen and examined. no new complaints. Family at bedside. Answered all questions. 05/22/2016 Patient seen and examined. Chart reviewed. Patient denies any new complaints. Oncology is going to start first dose of chemotherapy today. 05/23/2016 Patient seen and examined. Chart reviewed. Patient denies any complaints. Oncology started chemotherapy. Patient tolerated chemotherapy well. - Constitutional Vitals: Temp Pulse Resp BP Pulse Ox 99.6 F 79 16 102/64 92 05/23/16 07:06 05/23/16 07:06 05/23/16 07:06 05/23/16 07:06 05/23/16 07:06 General appearance: Present: cooperative, A&O X 3, pleasant, no acute distress, answers questions appropriately - Head Head exam: Present: atraumatic, normocephalic - Eye Eye exam: Present: PERRL, conjuntiva pink, sclera anicteric Pupils: Present: PERRL - Neck Neck exam general surgery: Present: supple, trachea midline. Absent: lymphadenopathy - Respiratory Respiratory exam: Present: CTAB. Absent: accessory muscle use, rales, rhonchi, wheezes - Cardiovascular Cardiovascular exam: Present: RRR, +S1, +S2. Absent: diastolic murmur, gallop, rubs, systolic murmur - GI/Abdominal GI/Abdominal exam: Present: normal bowel sounds, soft, no peritoneal signs. Absent: distended, tenderness - Extremities Exam Extremities exam: Present: warm, radial pulses palpable and symetrical. Absent : calf tenderness, cyanotic, pedal edema - Neurological Exam Neurological exam: Present: CN II-XII intact, oriented X3, no focal deficits. Absent: pronater drift, facial droop, speech deficit - Skin Skin exam: Present: dry, intact Internal Medicine: Result - Labs CBC & Chem 7: 05/22/16 13:52 05/22/16 13:52 Labs: Short CBC 05/22/16 Range/Units 13:52 WBC 9.2 (4.3-11.1) K/mcL Hgb 11.0 L (12.9-16.9) g/dL Hct 32.9 L (37.5-50.1) % Plt Count 174 (140-400) K/mcL Neutrophils # 7.2 (1.6-8.9) K/mcL BMP 05/22/16 13:52 Sodium 137 Potassium 3.8 Chloride 108 Carbon Dioxide 22 BUN 15 Creatinine 1.24 Glucose 90 Calcium 10.0 Liver Function 05/22/16 Range/Units 13:52 Total Bilirubin 0.8 (0.2-1.2) mg/dL AST 154 H (5-34) Units/L ALT 138 H (0-55) Units/L Alkaline Phosphatase 626 H (38-126) Units/L Albumin 2.7 L (3.5-5.0) g/dL - ABG Interpretation ABG results: ABG ABG pH 7.43 pH Units (7.32-7.45) 05/13/16 17:45 ABG pCO2 42 mmHg (35-45) 05/13/16 17:45 ABG pO2 72 mmHg (85-104) L 05/13/16 17:45 ABG O2 Saturation 95 % (95-98) 05/13/16 17:45 PT/INR, D-dimer PT 13.1 Seconds (9.4-12.1) H 05/20/16 04:00 Consult Discharge Plan - Plan Referrals: Crys Givens MD [Partnered Physician] - 06/08/16 11:40 am [place],PCP [Primary Care Provider] - 05/31/16 2:15 pm Prescriptions: Prochlorperazine Maleate [Compazine] 10 mg PO Q6HR PRN #40 tablet PRN Reason: nausea/vomiting Magic Mouthwash 10 ml PO Q4H PRN #240 ml PRN Reason: mucositis,stomatitis Omeprazole [PriLOSEC] 20 mg PO DAILY #30 capsule. Ondansetron HCl [Zofran] 4 mg PO Q6H PRN #40 tablet PRN Reason: nausea/vomiting
[2016-05-23] MEDS: 0.9 % Sodium Chloride 500 ML IVC SCH (16:39)
[2016-05-23] MEDS: Gabapentin 100 MG CAPSULE PO SCH (20:43)
[2016-05-23] MEDS: diazePAM 10 MG TABLET PO PRN (20:43)
[2016-05-24] MEDS ORDERED: ETOPOSIDE IV SCH
[2016-05-24] MEDS ORDERED: Dexamethasone 10 MG/ML VIAL IV ONE
[2016-05-24] MEDS ORDERED: SODIUM CHLORIDE 0.9% IV SCH
[2016-05-24] MEDS ORDERED: *HR* LORazepam 2 MG/ML VIAL IV PRN
[2016-05-24] MEDS ORDERED: Prochlorperazine 10 MG/2 ML VIAL IV PRN
[2016-05-24] MEDS ORDERED: Famotidine 20 MG/2 ML VIAL IV PRN
[2016-05-24] MEDS ORDERED: 0.9 % Sodium Chloride 500 ML IVC SCH
[2016-05-24] MEDS ORDERED: Dexamethasone 10 MG/ML VIAL IV PRN
[2016-05-24] MEDS: *HR* HYDROcodone/Acet 10/325 mg TABLET PO PRN ×2 (04:12→09:33)
[2016-05-24] MEDS: Ipratropium/Albuterol Neb 3 ML IH SCH ×2 (04:34→10:53)
[2016-05-24] MEDS: *HR* Heparin 5,000 UNIT/ML VIAL SQ SCH (06:21)
[2016-05-24] MEDS: Aspirin 81 MG TAB.CHEW PO SCH (09:34)
[2016-05-24] MEDS: Sennosides 8.6 MG TABLET PO SCH (09:34)
[2016-05-24] MEDS: Megestrol Acetate 400 MG/10 ML UDC PO SCH (09:34)
[2016-05-24 12:25] VITALS: BP 110/61
--- NOTE | 2016-05-24 12:25 | Discharge Summary ---
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 Priority: Primary Status: Acute (2) Hypercalcemia of malignancy Priority: Primary Status: Acute (3) Altered mental status Priority: Primary Status: Resolved Qualifiers: Altered mental status type: unspecified Qualified Code(s): R41.82 - Altered mental status, unspecified (4) ANN-MARIE (acute kidney injury) Priority: Primary Status: Acute (5) DVT prophylaxis Priority: Secondary Status: Acute - Discharge Medications Prescriptions: Prochlorperazine Maleate [Compazine] 10 mg PO Q6HR PRN #40 tablet PRN Reason: nausea/vomiting Magic Mouthwash 10 ml PO Q4H PRN #240 ml PRN Reason: mucositis,stomatitis Megestrol Acetate [Megace] 400 mg PO DAILY #30 udc Omeprazole [PriLOSEC] 20 mg PO DAILY #30 capsule. Ondansetron HCl [Zofran] 4 mg PO Q6H PRN #40 tablet PRN Reason: nausea/vomiting Home Medications: Omeprazole [PriLOSEC] 20 mg PO DAILY 02/22/15 [History] Albuterol Sulfate [Proventil Hfa] 2 puff IH Q4H PRN 05/11/16 [History] Aspirin 81 mg PO DAILY 05/11/16 [History] Atorvastatin Calcium [Lipitor] 80 mg PO DAILY 05/11/16 [History] Cyclobenzaprine [Flexeril] 10 mg PO TID PRN 05/11/16 [History] Diazepam [Valium] 10 mg PO DAILY PRN 05/11/16 [History] Gabapentin [Neurontin] 300 mg PO TID 05/11/16 [History] Guaifenesin [Siltussin SA] 100 mg PO BID 05/11/16 [History] HYDROcodone/Acet 7.5/325 mg [[place] 7.5-325 mg] 1 tab PO 5XD PRN 05/11/16 [ History] Moxifloxacin HCl [Avelox] 400 mg PO DAILY 05/11/16 [History] Nabumetone [Relafen] 500 mg PO BID 05/11/16 [History] Sennosides [Senna] 8.6 mg PO BID 05/11/16 [History] Sertraline [Zoloft] 100 mg PO DAILY 05/11/16 [History] Tamsulosin [Flomax] 0.4 mg PO DAILY 05/11/16 [History] Tiotropium Br/Olodaterol HCl [Stiolto Respimat Inhal [place]] 2 puff IH DAILY [History] Tiotropium [place] [Spiriva Respimat] 2 puff IH DAILY 05/11/16 [History] Tizanidine HCl 4 mg PO TID PRN 05/11/16 [History] Allopurinol [Zyloprim 100 MG] 200 mg PO DAILY #30 tablet 05/22/16 [Rx] Magic Mouthwash 10 ml PO Q4H PRN #240 ml 05/22/16 [Rx] Omeprazole [PriLOSEC] 20 mg PO DAILY #30 capsule. 05/22/16 [Rx] Ondansetron HCl [Zofran] 4 mg PO Q6H PRN #40 tablet 05/22/16 [Rx] Prochlorperazine Maleate [Compazine] 10 mg PO Q6HR PRN #40 tablet 05/22/16 [Rx] Loperamide [Imodium] 2 mg PO QID PRN #30 capsule 05/24/16 [Rx] Megestrol Acetate [Megace] 400 mg PO DAILY #30 udc 05/24/16 [Rx] Megestrol Acetate [Megace] 400 mg PO DAILY #300 ml 05/24/16 [Rx] Allergies/Adverse Reactions: Allergies No Known Allergies Allergy (Verified 05/10/16 23:36) Date of admission: 05/11/16 07:39 [facility] Consults: 05/11/16 10:10 Consult to Oncology [CONS] Routine Consulting Provider: On[facility] Reason for Consult: hypercalcemia,hx of malignacy Time Notified: 10:11 Call Completed: Yes 05/11/16 13:31 Consult to Pastoral Services [CONS] Routine Comment: 05/18/16 11:09 Consult to In File Operator [CONS] Routine Reason for SW Consult: Need HPOA. Patient's will be here this afternoon (05/18) 05/19/16 10:20 Consult to Gastroenterology [CONS] Routine Consulting Provider: Gastroenterology Adela[facility] Reason for Consult: asymmetric soft tissue thickening of the ascending colon suspicious for malignancy Call Completed: Yes 05/21/16 09:33 Consult to Occupational Therapy [CONS] Routine Comment: Evaluate, develop and implement POC Consult to Physical Therapy [CONS] Routine Comment: Evaluate, develop and implement POC Discharging clinician: Ronaldo West - Patient Status Disposition: Left Against Medical Advice Condition: Fair Functional capacity at discharge: wheelchair bound Overall status at discharge: patient is not back to baseline - Discharge Instructions Instructions: Omeprazole (By mouth), Megestrol Acetate (By mouth), Thiethylperazine Maleate (By mouth), Ondansetron (By mouth) Follow Up With: Anahi Sotelo MD [Partnered Physician] - 05/25/16 2:30 pm Crys Givens MD [Partnered Physician] - 06/08/16 11:40 am [place],PCP [Primary Care Provider] - 05/31/16 2:15 pm Forms: Inpatient Work/School Release - Diet and Activity Activity: as per physical therapy, increase activity as tolerated Diet: diabetic diet, low fat, low cholesterol, low salt diet Interval History: Mr. Trevino is a 65 year old male past medical history of throat and prostate cancer presently 5 years ago COPD . Patient presented to the ER with complaints of generally weakness and change in mental status and fatigue over the past 2 days. Patient denies any recent history of head injury trauma or fall . [facility] did have some suspicious nodules on CAT scan dated 03/16/2015. He was seen by pulmonology at this facility which found these benign etiology. He does have a history of third cancer diagnosed in 2007 and received radiation and chemotherapy treatment. He has since been in remission he denies any recent chills fevers nausea vomiting or sick contacts. He does have intermittent mild cough which is nonproductive. He also has complaint of some anorexia states he just does not have an appetite to eat. Patient did present to the ER with above complaints. According to ER records patient's oxygen saturation was 86% he was placed on nasal cannula which did increase oxygen saturation 94% he is afebrile. Lab work did reveal no leukocytosis however he did have some hypokalemia as well as elevated creatinine and hypercalcemia calcium level 17.5. chest x-ray did reveal some bibasilar atelectasis and possible mild pulmonary edema. sinus rhythm no ST-T wave abnormalities. Patient was given IV fluid. He was admitted for further workup and evaluation. Presently patient appears fatigued. Denies any chest pain or shortness of breath. He does state he feels very weak lung sounds are clear bilaterally pounds S1 and S2 with no gallop murmur rub or click noted. SPO2 is 93% on 2 L nasal cannula. Hospital course: Patient was admitted for hypercalcemia. He was given adequate IV hydration. Imaging was performed. Noted that patient has a large lytic lesions on his spine. Bone marrow biopsy was done. Bone marrow biopsy was suggestive of a metastasis from small cell lung cancer. The origin of the small cell lung cancer is likely lung. Oncology was on the board. Patient was started on chemotherapy. Patient started getting better. Physical therapy/occupational therapy was consulted. PT/OT recommended inpatient rehabilitation. Patient refused to go to inpatient rehabilitation. Inpatient chemotherapy started. Patient insists to go home. Patient was told to complete his radiation dosages and then go home. Patient refused to stay in the hospital and insists to go home. Patient understood the risk of going home AGAINST MEDICAL ADVICE. Patient at length that he is at risk of fall/bleeding/infection/coma/. Patient verbalized understanding but insists to go home. Appointments are made of with the oncology. Prescriptions given to the patient including pain medication. - Time Spent with Patient Total time spent providing and/or coordinating discharge services: - Constitutional Vitals: Temp Pulse Resp BP Pulse Ox 98.8 F 89 18 117/62 90 05/24/16 07:36 05/24/16 07:36 05/24/16 07:36 05/24/16 07:36 05/24/16 07:36 General appearance: Present: cooperative, A&O X 3, pleasant, no acute distress, answers questions appropriately - Head Head exam: Present: atraumatic, normocephalic - Eye Eye exam: Present: PERRL, conjuntiva pink, sclera anicteric Pupils: Present: PERRL - Neck Neck exam general surgery: Present: supple, trachea midline. Absent: lymphadenopathy - Respiratory Respiratory exam: Present: CTAB. Absent: accessory muscle use, rales, rhonchi, wheezes - Cardiovascular Cardiovascular exam: Present: RRR, +S1, +S2. Absent: diastolic murmur, gallop, rubs, systolic murmur - GI/Abdominal GI/Abdominal exam: Present: normal bowel sounds, soft, no peritoneal signs. Absent: distended, tenderness - Extremities Exam Extremities exam: Present: warm, radial pulses palpable and symetrical. Absent : calf tenderness, cyanotic, pedal edema - Neurological Exam Neurological exam: Present: CN II-XII intact, oriented X3, no focal deficits. Absent: pronater drift, facial droop, speech deficit - Skin Skin exam: Present: dry, intact
== END 2016-05-24 14:56 | disposition left against medical advice (07) | DRG 988 ==
LOC: EMEROO 23:31 → SUATTDRO 05-11 07:39 → 2NENU 05-11 07:39
PROVIDERS: ADMIT Nurse Practitioner Acute Care; ATTEND Internal Medicine